=== PATIENT | female | born 1930 | race Asian ===

== ENCOUNTER 2017-04-02 12:31 | Inpatient (IN) | payer OTHER ==
[~2017-04-02] VITALS: Ht 154.9 cm; Wt 63.5 kg
[~2017-04-02 12:31] MED LIST: AMLODIPINE-BEN1 EAC4 ORAL; ASPIR 8181 MG ORAL; HYDROCHLOROTH12.5 MG ORAL; LOVASTATIN20 MG ORAL; METFORMIN HCL850 M1 ORAL; VITAMIN D31000 UNI3 ORAL
[2017-04-02 13:00] VITALS: BP 123/71
[2017-04-02] MEDS ORDERED: Sodium Chloride 500ML 500 ML IV ONE (13:11)
[2017-04-02] MEDS ORDERED: Morphine Sulfate 2mg/ml Inj IVP ONE (13:15)
[2017-04-02 13:39] LABS: HEMATOCRIT 39.4 % (37.0-47.0); MEAN CORPUSCULAR VOLUME 89 FL (80-99); PLATELET COUNT 184 K/UL (150-450); RED CELL DISTRIBUTION WIDTH 12.8 % (11.6-14.8); WHITE BLOOD COUNT 10.3 K/UL (4.8-10.8)
[2017-04-02 13:46] LABS: ANION GAP 9 mmol/L (5-15); BLOOD UREA NITROGEN 13 mg/dL (7-18); CALCIUM 9.3 MG/DL (8.5-10.1); CARBON DIOXIDE 30 MMOL/L (21-32); CHLORIDE 95 MMOL/L (98-107); CREATININE 0.9 MG/DL (0.55-1.30); POTASSIUM 3.2 MMOL/L (3.5-5.1); SODIUM 134 MMOL/L (136-145)
[2017-04-02 14:00] VITALS: BP 130/69
[2017-04-02 14:09] LABS: ALANINE AMINOTRANSFERASE 19 U/L (12-78); ALBUMIN 3.8 G/DL (3.4-5.0); ALBUMIN/GLOBULIN RATIO 0.9 (1.0-2.7); ALKALINE PHOSPHATASE 68 U/L (46-116); ASPARTATE AMINO TRANSFERASE 16 U/L (15-37); BILIRUBIN,TOTAL 0.9 MG/DL (0.2-1.0); CKMB 0.9 NG/ML (0.0-3.6); CREATINE KINASE 117 U/L (26-308)
--- NOTE | 2017-04-02 14:09 | Diagnostic Imaging Report ---
Indication: Chest pain Technique: One view of the chest Comparison: 11/20/2008 Findings: The heart is enlarged. Lungs and pleural spaces are clear. The aorta is tortuous ectatic and calcified. No significant change Impression: Cardiomegaly. No acute process
--- NOTE | 2017-04-02 14:11 | Diagnostic Imaging Report ---
Indication: Reason For Exam: PAIN Technique: 3 views of the right knee Comparison: None Findings: There is degenerative narrowing of lateral joint compartment. There are medial and lateral osteophytes. There is a large suprapatellar effusion. There are patellofemoral osteophytes. The bones are osteoporotic. No acute fractures. Sulcations. There may be some lateral meniscal chondrocalcinosis Impression: Joint effusion, may indicate internal derangement among other possibilities. Correlate with clinical findings Lateral compartment degenerative a space narrowing and tricompartmental degenerative proliferative changes No acute bony trauma Osteoporosis
--- NOTE | 2017-04-02 14:23 | Diagnostic Imaging Report ---
Indications: Syncope, status post fall yesterday Technique: Spiral acquisitions obtained through the brain. Angled axial and coronal 5 x 5 mm slices were reconstructed. Total dose length product 1280.66 mGycm. CTDI vol(s) 70.38 mGy. Dose reduction achieved using automated exposure control Comparison: None. Findings: No acute intracranial hemorrhage or edema. No mass effect or midline shift. There is age-related enlargement of the ventricles and extra axial CSF spaces. There is periventricular deep white matter chronic ischemic changes. There is questionably an old lacunar infarct in the right side of the midbrain. Normal razo-white differentiation. The calvarium is intact. Visualized orbits and sinuses are unremarkable. Impression: Chronic and age-related changes. 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 is accredited by the [employer] and the scans are performed using protocols designed to limit radiation exposure to as low as reasonably achievable to attain images of sufficient resolution adequate for diagnostic evaluation.
[2017-04-02 15:00] VITALS: BP 122/71
--- NOTE | 2017-04-02 15:06 | Emergency Room Report ---
History of Present Illness General Chief Complaint: Syncope Source: Patient Present Illness HPI 86-year-old female presents ED status post syncopal episode. Son at bedside states that patient passed out last night hitting her knee and possibly hitting her head. Patient does not recall what happened. Patient called her son this morning complaining of right knee pain. throbbing, 8 out 10. Unable to bend or extend. Unable to bear weight denies headache. Denies chest pain or shortness of breath. States she takes Xarelto for A. fib. No other aggravating relieving factors. Denies any other associated symptoms Allergies: Coded Allergies: No Known Allergies (Verified , 03/21/11) Patient History Past Medical History: DM, HTN, AFib Past Surgical History: none Pertinent Family History: none Social History: Denies: smoking, alcohol use, drug use Now: No Immunizations: UTD Reviewed Nursing Documentation: PMH: Agreed, PSxH: Agreed Nursing Documentation-PMH Past Medical History: No History, Except For Hx Hypertension: Yes Hx Diabetes: Yes Hx Cancer: No Hx Gastrointestinal Problems: Yes - fatty liver Hx Neurological Problems: Yes - migraines Review of Systems All Other Systems: negative except mentioned in HPI Physical Exam Vital Signs Date Time Temp Pulse Resp B/P (MAP) Pulse Ox O2 Delivery O2 Flow Rate FiO2 04/02/17 12:45 97.6 94 18 132/75 94 Room Air 97.5 Sp02 EP Interpretation: reviewed, normal General Appearance: no apparent distress, alert, GCS 15, non-toxic Head: normocephalic Eyes: bilateral eye normal inspection, bilateral eye PERRL ENT: normal ENT inspection Neck: normal inspection Respiratory: chest non-tender, lungs clear, normal breath sounds, speaking full sentences Cardiovascular #1: regular rate, rhythm, no edema Gastrointestinal: normal bowel sounds, non tender, soft, non-distended, no guarding, no rebound Rectal: deferred Genitourinary: no CVA tenderness Musculoskeletal: decreased range of motion, swelling - R knee Neurologic: alert, oriented x3, responsive, motor strength/tone normal, sensory intact, speech normal Psychiatric: normal inspection Skin: normal inspection Lymphatic: normal inspection Medical Decision Making Diagnostic Impression: Primary Impression: Syncope Qualified Codes: R55 - Syncope and collapse Additional Impressions: Head injury Qualified Codes: S09.90XA - Unspecified injury of head, initial encounter Knee injury Qualified Codes: S89.91XA - Unspecified injury of right lower leg, initial encounter ER Course Hospital Course 86-year-old F presents ED s/p syncopal episode. R knee pain s/p fall Differential diagnoses include: NH/unstable angina, arrythmia, dehydration, CVA/ TIA Clinical course Patient placed on stretcher. on cardiac rehabilitation specialist. After initial history and physical I ordered labs, EKG, chest x-ray, IVFs, CT Brain labs reviewed- no leukocytosis, hemoglobin/hematocrit ok, electrolytes okay, troponins negative, coags ok EKG-afib, no RVR Chest x-ray- no acute process CT brain-unremarkable R knee xray show significant DJD, joint effusion, no fx Case discussed with Dr. Cornell and he agreed to accept the patient to his service for further care and support I. I feel this is a highly complex case requiring extensive working including EKG/Rhythm strip, Xray/CT/US, Blood/urine lab work, repeat exams while in ED, and administration of strong opiates/narcotics for pain control, admission to hospital or close patient follow up. Diagnosis - syncope, head injury, knee injury admitted to telemetry in serious condition Labs Test 04/02/17 13:11 White Blood Count 10.3 K/UL (4.8-10.8) Red Blood Count 4.40 M/UL (4.20-5.40) Hemoglobin 13.0 G/DL (12.0-16.0) Hematocrit 39.4 % (37.0-47.0) Mean Corpuscular Volume 89 FL (80-99) Mean Corpuscular Hemoglobin 29.5 PG (27.0-31.0) Mean Corpuscular Hemoglobin Concent 33.0 G/DL (32.0-36.0) Red Cell Distribution Width 12.8 % (11.6-14.8) Platelet Count 184 K/UL (150-450) Mean Platelet Volume 6.1 FL (6.5-10.1) Neutrophils (%) (Auto) % (45.0-75.0) Lymphocytes (%) (Auto) % (20.0-45.0) Monocytes (%) (Auto) % (1.0-10.0) Eosinophils (%) (Auto) % (0.0-3.0) Basophils (%) (Auto) % (0.0-2.0) Differential Total Cells Counted 100 Neutrophils % (Manual) 84 % (45-75) Lymphocytes % (Manual) 5 % (20-45) Monocytes % (Manual) 11 % (1-10) Eosinophils % (Manual) 0 % (0-3) Basophils % (Manual) 0 % (0-2) Band Neutrophils 0 % (0-8) Platelet Estimate Adequate Platelet Morphology Normal Red Blood Cell Morphology Normal Prothrombin Time 10.5 SEC (9.30-11.50) Prothromb Time International Ratio 1.0 (0.9-1.1) Activated Partial Thromboplast Time 28 SEC (23-33) Sodium Level 134 MMOL/L (136-145) Potassium Level 3.2 MMOL/L (3.5-5.1) Chloride Level 95 MMOL/L (98-107) Carbon Dioxide Level 30 MMOL/L (21-32) Anion Gap 9 mmol/L (5-15) Blood Urea Nitrogen 13 mg/dL (7-18) Creatinine 0.9 MG/DL (0.55-1.30) Estimat Glomerular Filtration Rate mL/min (>60) Glucose Level 188 MG/DL (74-106) Calcium Level 9.3 MG/DL (8.5-10.1) Total Bilirubin 0.9 MG/DL (0.2-1.0) Aspartate Amino Transf (AST/SGOT) 16 U/L (15-37) Alanine Aminotransferase (ALT/SGPT) 19 U/L (12-78) Alkaline Phosphatase 68 U/L (46-116) Total Creatine Kinase 117 U/L (26-308) Creatine Kinase MB 0.9 NG/ML (0.0-3.6) Creatine Kinase MB Relative Index 0.7 Troponin I 0.000 ng/mL (0.000-0.056) Pro-B-Type Natriuretic Peptide 1446 pg/mL (0-125) Total Protein 7.8 G/DL (6.4-8.2) Albumin 3.8 G/DL (3.4-5.0) Globulin 4.0 g/dL Albumin/Globulin Ratio 0.9 (1.0-2.7) EKG Diagnostic Results Rate: normal Rhythm: other - afib ST Segments: no acute changes ASA given to the pt in ED: No Rhythm Strip Diag. Results EP Interpretation: yes Rhythm: no PVC's, no ectopy Chest X-Ray Diagnostic Results Chest X-Ray Diagnostic Results : Chest X-Ray Ordered: Yes # of Views/Limited/Complete: 1 View Indication: Other - syncope EP Interpretation: Yes Interpretation: no consolidation, no effusion, no pneumothorax, no acute cardiopulmonary disease, other - cardiomegaly Impression: Other - cardiomegaly Electronically Signed by: Electronically signed by Constantin Whalen MD Other X-Ray Diagnostic Results Other X-Ray Diagnostic Results : X-Ray ordered: R knee # of Views/Limited Vs Complete: 3 View Indication: Pain EP Interpretation: Yes Interpretation: no dislocation, no soft tissue swelling, no fractures, other - large joint effusion Impression: Other - joint effusion, significant DJD Electronically Signed by: Electronically signed by Constantin Whalen MD CT/MRI/US Diagnostic Results CT/MRI/US Diagnostic Results : Imaging Test Ordered: CT Head Impression no acute process Last Vital Signs Date Time Temp Pulse Resp B/P (MAP) Pulse Ox O2 Delivery O2 Flow Rate FiO2 04/02/17 13:00 98.1 102 23 123/71 97 Room Air 98.1 Status: improved Disposition: ADMITTED INPATIENT Condition: Serious Referrals: [facility],REFERRING (PCP) CONSTANTIN WHALEN M.D. Apr 02, 2017 15:06
[2017-04-02] MEDS ORDERED: Norco 5mg/325mg tab ORAL PRN (15:15)
[2017-04-02] MEDS: NovoLOG Insulin Flexpen SUBQ SCH ×2 (18:20→21:51)
--- NOTE | 2017-04-02 18:52 | Cardiology Progress Note ---
Assessment/Plan Assessment/Plan lives alone not clear to me how son think pt may have had syncoep she does nto remember why she is here ct neg stephen havce echo rothstatic vitals if able to stand message left for son hod off on diuretic hodl benzepril leia tolerant of higer bp for now [id number] Objective Last 24 Hour Vital Signs Date Time Temp Pulse Resp B/P (MAP) Pulse Ox O2 Delivery O2 Flow Rate FiO2 04/02/17 15:40 98.1 101 19 122/71 95 Room Air 04/02/17 15:00 100 20 122/71 96 Room Air 04/02/17 14:00 93 20 130/69 97 Room Air 04/02/17 13:00 98.1 102 23 123/71 97 Room Air 98.1 04/02/17 12:45 97.6 94 18 132/75 94 Room Air 97.5 Laboratory Tests Test 04/02/17 13:11 White Blood Count 10.3 K/UL (4.8-10.8) Red Blood Count 4.40 M/UL (4.20-5.40) Hemoglobin 13.0 G/DL (12.0-16.0) Hematocrit 39.4 % (37.0-47.0) Mean Corpuscular Volume 89 FL (80-99) Mean Corpuscular Hemoglobin 29.5 PG (27.0-31.0) Mean Corpuscular Hemoglobin Concent 33.0 G/DL (32.0-36.0) Red Cell Distribution Width 12.8 % (11.6-14.8) Platelet Count 184 K/UL (150-450) Mean Platelet Volume 6.1 FL (6.5-10.1) L Neutrophils (%) (Auto) % (45.0-75.0) Lymphocytes (%) (Auto) % (20.0-45.0) Monocytes (%) (Auto) % (1.0-10.0) Eosinophils (%) (Auto) % (0.0-3.0) Basophils (%) (Auto) % (0.0-2.0) Differential Total Cells Counted 100 Neutrophils % (Manual) 84 % (45-75) H Lymphocytes % (Manual) 5 % (20-45) L Monocytes % (Manual) 11 % (1-10) H Eosinophils % (Manual) 0 % (0-3) Basophils % (Manual) 0 % (0-2) Band Neutrophils 0 % (0-8) Platelet Estimate Adequate Platelet Morphology Normal Red Blood Cell Morphology Normal Prothrombin Time 10.5 SEC (9.30-11.50) Prothromb Time International Ratio 1.0 (0.9-1.1) Activated Partial Thromboplast Time 28 SEC (23-33) Sodium Level 134 MMOL/L (136-145) L Potassium Level 3.2 MMOL/L (3.5-5.1) L Chloride Level 95 MMOL/L (98-107) L Carbon Dioxide Level 30 MMOL/L (21-32) Anion Gap 9 mmol/L (5-15) Blood Urea Nitrogen 13 mg/dL (7-18) Creatinine 0.9 MG/DL (0.55-1.30) Estimat Glomerular Filtration Rate mL/min (>60) Glucose Level 188 MG/DL (74-106) H Calcium Level 9.3 MG/DL (8.5-10.1) Total Bilirubin 0.9 MG/DL (0.2-1.0) Aspartate Amino Transf (AST/SGOT) 16 U/L (15-37) Alanine Aminotransferase (ALT/SGPT) 19 U/L (12-78) Alkaline Phosphatase 68 U/L (46-116) Total Creatine Kinase 117 U/L (26-308) Creatine Kinase MB 0.9 NG/ML (0.0-3.6) Creatine Kinase MB Relative Index 0.7 Troponin I 0.000 ng/mL (0.000-0.056) Pro-B-Type Natriuretic Peptide 1446 pg/mL (0-125) H Total Protein 7.8 G/DL (6.4-8.2) Albumin 3.8 G/DL (3.4-5.0) Globulin 4.0 g/dL Albumin/Globulin Ratio 0.9 (1.0-2.7) VAHID NICOLE Apr 02, 2017 18:52
[2017-04-02 20:00] VITALS: BP 146/75
--- NOTE | 2017-04-02 20:32 | History and Physical Report ---
DATE OF ADMISSION: 04/02/2017 HISTORY OF PRESENT ILLNESS: The patient is an 86-year-old female, who lives at home alone. She is a poor historian. Apparently, she fell last night and hit her head and injured her right knee. She is unable to walk and was brought into the emergency department by paramedics. She was evaluated and found to have fluid in the right knee joint, but no fracture. A CT brain was negative. Admission was arranged. The patient reports she does not know what happened to her last night. A CT of the brain shows a possible old right midbrain lacunar infarct. PAST MEDICAL HISTORY: This is obtained from [facility] medical records. 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 MEDICATIONS: Reviewed and reconciled. SOCIAL HISTORY: She does not drink or smoke. She is and has multiple family members, but she lives with a student, who she rents a room in her home. She was born in [place]. REVIEW OF SYSTEMS: Otherwise unremarkable. PHYSICAL EXAMINATION: GENERAL: The patient is alert and responsive. She is thin and frail. VITAL SIGNS: Show a heart rate of 102. Other vital signs are normal. HEENT: The head is normocephalic. There is no sign of trauma. NECK: Has no jugular venous distention. CHEST: Clear. CARDIAC: Rhythm is irregular. ABDOMEN: Soft and nontender. The liver and spleen are not enlarged. EXTREMITIES: No clubbing, cyanosis, or edema. The right knee is swollen with a joint effusion. IMPRESSION: 1. Syncope, etiology unclear, possibly due to cerebrovascular disease or arrhythmia or valvular heart disease. 2. Atrial fibrillation. 3. Hypertension. 4. Diabetes. 5. Right knee effusion. 6. Hyperlipidemia. 7. Gout. 8. Carotid artery disease. 9. Hypokalemia. PLAN: The patient will be admitted and evaluated with cardiac echocardiogram and carotid ultrasound. Cardiology and Orthopedics have been called. Mark Cornell M.D. DR: Jose M JOB#: [id number] CC: Cristofer Isaac M.D. [place] [place] Fax#: [phone] Cristofer Brandt M.D.
[2017-04-02] MEDS: Atorvastatin 20mg tab ORAL SCH (21:49)
--- NOTE | 2017-04-02 22:17 | Consultation ---
DATE OF CONSULTATION: 04/02/2017 CARDIOLOGY CONSULTATION REFERRING PHYSICIAN: Mark Cornell M.D. REASON FOR REFERRAL: Syncope. HISTORY OF PRESENT ILLNESS: This is an elderly female who really is somewhat of a poor historian. Information is obtained from review of the patient's chart here and from my review of the [facility] records. I have attempted to contact the patient's son, Mark, but have not been able to reach, a message was left for him to call me back. According to the ER physician's note, the patient's son told that the patient passed out last night, hitting her knee and possibly hitting her head. Does not recall what happened. The patient called her son this morning complaining of the right knee pain, throbbing, 8/10, unable to bend or extend, unable to bear weight. Denies any dizziness. Denies any chest pain or shortness of breath. The patient has been on Xarelto for atrial fibrillation. The patient at this time complains only of the right knee pain and she denies any chest pain, denies any shortness of breath and she is again somewhat of a poor historian. PAST MEDICAL HISTORY: The patient's past medical history according to [facility] records is positive for history of abnormal liver function tests, atrial fibrillation, intermittent paroxysmal in nature, apparently a Zio patch in 2017 indicated 1% atrial fibrillation burden, carotid stenosis, chronic gouty arthritis with tophi, diabetes mellitus, fatty liver, hyperlipidemia, hypertension, hyponatremia, lumbar back pain, osteoarthritis, osteopenia, tubular adenoma, and vitamin D deficiency. MEDICATIONS: Previously have been metoprolol, lovastatin, metformin, Xarelto, Lotensin, hydrochlorothiazide, amlodipine, colchicine and vitamin D. SOCIAL HISTORY: She does not smoke or drink alcoholic beverages. She is , two sons, one daughter, and 5 grandchildren. She lives alone in a house . Her son in [place], his name is Mark with 2 grand kids. Other kids live in [place] and [facility]. She apparently was able to take a bus to doctor's office. REVIEW OF SYSTEMS: CARDIAC: Denies any chest pain or shortness of breath. GENITOURINARY: Denies any discomfort on urination. PULMONARY: She denies any coughing or wheezing. CONSTITUTIONAL: Denies any fevers or chills or night sweats. NEUROLOGICAL: Negative. PHYSICAL EXAMINATION: GENERAL: Shows to be elderly female, in no respiratory distress. She looks quite comfortable. LUNGS: Clear to auscultation and percussion. CARDIAC: Irregularly irregular. Not tachycardic. Not bradycardic. No heaves or thrills noted. ABDOMEN: Soft and nontender. Positive bowel sounds. EXTREMITIES: There is no clubbing, cyanosis, and there is no edema. She does have some pain and swelling of the right knee. NEUROLOGICAL: She is awake, alert, responsive, and she seems to be moving all four extremities, although the right knee is limited secondary to pain. LABORATORY AND DIAGNOSTIC DATA: Her white count is 10.3, hemoglobin 13 and platelet count of 184, polys 85, lymphocytes 5 and monos 11. Sodium is 134, potassium 3.3, chloride 95, bicarbonate 30, BUN of 13, creatinine 0.9 and glucose of 188. Liver function tests appeared to be normal. Troponin first set 0.00. ProBNP is 1400. Albumin of 3.8. Coagulations, INR 1.0 and a PTT of 28. A chest x-ray was performed today shows cardiomegaly, no acute processes. Otherwise, she did have a CT scan of her head in the emergency room, chronic age-related changes, possible or right mid brain could infarction. Negative for acute bleed or mass effects and she had knee x-rays that showed joint effusion, lateral compartment degeneration and space narrowing and tricompartmental degenerative proliferative changes. No acute bony trauma. She apparently does have osteoporosis. Her EKG shows atrial fibrillation with ventricular response, borderline controlled at a rate of 101. Normal QRS axis and some nonspecific T-wave changes. ASSESSMENT AND PLAN: 1. Questionable syncope. 2. Paroxysmal episodes of atrial fibrillation. 3. Diabetes mellitus. 4. Hypertension. 5. There is knee injury. 6. 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 7. Gout. 8. Hyponatremia history. Dr. Cornell, this patient was seen in cardiac consultation. It is difficult for me to understand whether the patient has actually had a syncopal episode. Her son does not live with her, but indicated that the patient may have passed out last night. I am not sure how accurate that information is since the patient is quite demented and really does not remember the reason why they she has been here. I would recommend checking a set of orthostatic vitals. She is on diuretics at home. She does have some contraction alkalosis based on her laboratories. Attempt to perform orthostatic vitals may not be successful as the patient has knee injury and is unable to stand. Her CT did not show any intracranial bleeding and she has not had any pauses on her monitor. She should be observed. An echocardiogram will be ordered and she should be kept on anticoagulation for stroke prevention in light of the fact that she has paroxysmal episodes of atrial fibrillation and I have left a message for the patient's son to find out more information about. In the meantime, a syncopal workup will be performed. Anurag Wong M.D. DR: HALEY JOB#: [id number] CC:
[2017-04-03] VITALS: BP 132/54
[2017-04-03 04:00] VITALS: BP 135/68
[2017-04-03 04:32] LABS: BASOPHILS % (AUTO) 0.4 % (0.0-2.0); EOSINOPHILS % (AUTO) 0.1 % (0.0-3.0); HEMATOCRIT 35.7 % (37.0-47.0); HEMOGLOBIN 12.1 G/DL (12.0-16.0); MEAN CORPUSCULAR VOLUME 89 FL (80-99); MONOCYTES % (AUTO) 14.9 % (1.0-10.0); NEUTROPHILS % (AUTO) 66.6 % (45.0-75.0); PLATELET COUNT 173 K/UL (150-450); RED BLOOD COUNT 4.03 M/UL (4.20-5.40); RED CELL DISTRIBUTION WIDTH 12.6 % (11.6-14.8); WHITE BLOOD COUNT 8.4 K/UL (4.8-10.8)
[2017-04-03 04:52] LABS: CREATINE KINASE 96 U/L (26-308)
[2017-04-03 04:59] LABS: ALANINE AMINOTRANSFERASE 15 U/L (12-78); ALBUMIN 3.2 G/DL (3.4-5.0); ALKALINE PHOSPHATASE 60 U/L (46-116); ANION GAP 8 mmol/L (5-15); ASPARTATE AMINO TRANSFERASE 15 U/L (15-37); BLOOD UREA NITROGEN 17 mg/dL (7-18); CALCIUM 9.1 MG/DL (8.5-10.1); CARBON DIOXIDE 28 MMOL/L (21-32); CHLORIDE 101 MMOL/L (98-107); CHOLESTEROL 129 MG/DL (< 200); CREATININE 0.9 MG/DL (0.55-1.30); HDL CHOLESTEROL 71 MG/DL (40-60); POTASSIUM 4.3 MMOL/L (3.5-5.1); SODIUM 137 MMOL/L (136-145); TRIGLYCERIDES 53 MG/DL (30-150)
[2017-04-03] MEDS: NovoLOG Insulin Flexpen SUBQ SCH ×4 (06:17→20:55)
[2017-04-03 08:00] VITALS: BP 120/69
[2017-04-03] MEDS: Metoprolol Succinate XL 25mg tab ORAL SCH (08:50)
[2017-04-03] MEDS ORDERED: Benazepril 10mg tab ORAL SCH (09:00)
[2017-04-03] MEDS ORDERED: Aspirin Baby 81mg ORAL SCH (09:00)
[2017-04-03 12:00] VITALS: BP 93/54
--- NOTE | 2017-04-03 14:14 | General Progress Note ---
Assessment/Plan Status: not improved Assessment/Plan 1. Syncope, possibly due to cerebrovascular disease, arrhythmia or valvular heart disease. 2. Atrial fibrillation. 3. Hypertension. 4. Diabetes. 5. Right knee effusion. 6. Hyperlipidemia. 7. Gout. 8. Carotid artery disease. 9. Hypokalemia. appreciate cardiology assistance trop neg; BP low called ortho again may need arthrocentesis may need snf if unable to ambulate Subjective Cardiovascular: Denies: chest pain Respiratory: Denies: shortness of breath Allergies: Coded Allergies: No Known Allergies (Verified , 03/21/11) Objective Last 24 Hour Vital Signs Date Time Temp Pulse Resp B/P (MAP) Pulse Ox O2 Delivery O2 Flow Rate FiO2 04/03/17 12:00 99.5 87 20 93/54 96 Room Air 99.5 04/03/17 12:00 84 04/03/17 08:50 110 120/69 04/03/17 08:00 105 04/03/17 08:00 98.1 111 22 120/69 97 Room Air 98.1 04/03/17 06:10 115 04/03/17 06:05 102 04/03/17 06:00 87 04/03/17 04:00 91 04/03/17 04:00 97.9 97 20 135/68 99 Room Air 97.9 04/03/17 00:00 105 04/03/17 00:00 97.9 89 20 132/54 93 Room Air 97.9 04/02/17 20:00 105 04/02/17 20:00 97.9 68 20 146/75 94 Room Air 97.9 04/02/17 17:11 106 04/02/17 15:40 98.1 101 19 122/71 95 Room Air 04/02/17 15:00 100 20 122/71 96 Room Air Intake and Output 04/02/17 04/03/17 19:00 07:00 Intake Total 250 ml Balance 250 ml Intake Oral 250 ml # Voids 1 Laboratory Tests 04/03/17 04:00: White Blood Count 8.4, Red Blood Count 4.03L, Hemoglobin 12.1, Hematocrit 35.7L , Mean Corpuscular Volume 89, Mean Corpuscular Hemoglobin 30.1, Mean Corpuscular Hemoglobin Concent 34.0, Red Cell Distribution Width 12.6, Platelet Count 173, Mean Platelet Volume 6.1L, Neutrophils (%) (Auto) 66.6, Lymphocytes ( %) (Auto) 18.0L, Monocytes (%) (Auto) 14.9H, Eosinophils (%) (Auto) 0.1, Basophils (%) (Auto) 0.4, Sodium Level 137, Potassium Level 4.3, Chloride Level 101, Carbon Dioxide Level 28, Anion Gap 8, Blood Urea Nitrogen 17, Creatinine 0.9, Estimat Glomerular Filtration Rate , Glucose Level 118H, Hemoglobin A1c 6.7H, Calcium Level 9.1, Total Bilirubin 1.0, Aspartate Amino Transf (AST/SGOT) 15, Alanine Aminotransferase (ALT/SGPT) 15, Alkaline Phosphatase 60, Total Creatine Kinase 96, Troponin I 0.000, Pro-B-Type Natriuretic Peptide 2241H, Total Protein 6.4, Albumin 3.2L, Globulin 3.2, Albumin/Globulin Ratio 1.0, Triglycerides Level 53, Cholesterol Level 129, LDL Cholesterol 51, HDL Cholesterol 71H, Cholesterol/HDL Ratio 1.8L Height (Feet): 5 Height (Inches): 1.00 Weight (Pounds): 140 General Appearance: no apparent distress Neck: supple Cardiovascular: normal rate, irregularly irregular Respiratory/Chest: lungs clear Abdomen: non tender Extremities: swelling - R knee effusion THA MEJIA Apr 03, 2017 14:14
--- NOTE | 2017-04-03 15:50 | Consultation ---
Consult Note Consult Note Patient seen evaluated. Ordered CT scan of the Right knee to rule out occult fracture Will start PT toe touch weight bearing Ice to the right knee Hinged knee brace for support No aspiration is recommended. Full consult dictated. Thank you MADHURI BOYKIN Apr 03, 2017 15:50
[2017-04-03 16:00] VITALS: BP 122/67
[2017-04-03] MEDS: Xarelto 15mg tab ORAL SCH (17:23)
--- NOTE | 2017-04-03 18:35 | Cardiology Progress Note ---
Assessment/Plan Assessment/Plan 1. Questionable syncope. 2. Paroxysmal episodes of atrial fibrillation. 3. Diabetes mellitus. 4. Hypertension. 5. There is knee injury. 6. 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 7. Gout. 8. Hyponatremia history orthostatic vital neg today not checked yest tele no sig tachy nor nina echo prelim mod mr normal lv systolic function all torp neg bp was low once recorded not low now ortho fu home soon Subjective ROS Limited/Unobtainable: Yes Subjective poor historian Objective Last 24 Hour Vital Signs Date Time Temp Pulse Resp B/P (MAP) Pulse Ox O2 Delivery O2 Flow Rate FiO2 04/03/17 16:00 97.9 63 18 122/67 63 Room Air 97.9 04/03/17 16:00 82 04/03/17 12:00 99.5 87 20 93/54 96 Room Air 99.5 04/03/17 12:00 84 04/03/17 08:50 110 120/69 04/03/17 08:00 105 04/03/17 08:00 98.1 111 22 120/69 97 Room Air 98.1 04/03/17 06:10 115 04/03/17 06:05 102 04/03/17 06:00 87 04/03/17 04:00 91 04/03/17 04:00 97.9 97 20 135/68 99 Room Air 97.9 04/03/17 00:00 105 04/03/17 00:00 97.9 89 20 132/54 93 Room Air 97.9 04/02/17 20:00 105 04/02/17 20:00 97.9 68 20 146/75 94 Room Air 97.9 General Appearance: alert Neck: supple Cardiovascular: irregularly irregular Respiratory/Chest: lungs clear, normal breath sounds Abdomen: normal bowel sounds, non tender, soft Extremities: no swelling Intake and Output 04/02/17 04/03/17 19:00 07:00 Intake Total 250 ml Balance 250 ml Intake Oral 250 ml # Voids 1 Laboratory Tests Test 04/03/17 04:00 White Blood Count 8.4 K/UL (4.8-10.8) Red Blood Count 4.03 M/UL (4.20-5.40) L Hemoglobin 12.1 G/DL (12.0-16.0) Hematocrit 35.7 % (37.0-47.0) L Mean Corpuscular Volume 89 FL (80-99) Mean Corpuscular Hemoglobin 30.1 PG (27.0-31.0) Mean Corpuscular Hemoglobin Concent 34.0 G/DL (32.0-36.0) Red Cell Distribution Width 12.6 % (11.6-14.8) Platelet Count 173 K/UL (150-450) Mean Platelet Volume 6.1 FL (6.5-10.1) L Neutrophils (%) (Auto) 66.6 % (45.0-75.0) Lymphocytes (%) (Auto) 18.0 % (20.0-45.0) L Monocytes (%) (Auto) 14.9 % (1.0-10.0) H Eosinophils (%) (Auto) 0.1 % (0.0-3.0) Basophils (%) (Auto) 0.4 % (0.0-2.0) Sodium Level 137 MMOL/L (136-145) Potassium Level 4.3 MMOL/L (3.5-5.1) Chloride Level 101 MMOL/L (98-107) Carbon Dioxide Level 28 MMOL/L (21-32) Anion Gap 8 mmol/L (5-15) Blood Urea Nitrogen 17 mg/dL (7-18) Creatinine 0.9 MG/DL (0.55-1.30) Estimat Glomerular Filtration Rate mL/min (>60) Glucose Level 118 MG/DL (74-106) H Hemoglobin A1c 6.7 % (4.3-6.0) H Calcium Level 9.1 MG/DL (8.5-10.1) Total Bilirubin 1.0 MG/DL (0.2-1.0) Aspartate Amino Transf (AST/SGOT) 15 U/L (15-37) Alanine Aminotransferase (ALT/SGPT) 15 U/L (12-78) Alkaline Phosphatase 60 U/L (46-116) Total Creatine Kinase 96 U/L (26-308) Troponin I 0.000 ng/mL (0.000-0.056) Pro-B-Type Natriuretic Peptide 2241 pg/mL (0-125) H Total Protein 6.4 G/DL (6.4-8.2) Albumin 3.2 G/DL (3.4-5.0) L Globulin 3.2 g/dL Albumin/Globulin Ratio 1.0 (1.0-2.7) Triglycerides Level 53 MG/DL (30-150) Cholesterol Level 129 MG/DL (< 200) LDL Cholesterol 51 mg/dL (<100) HDL Cholesterol 71 MG/DL (40-60) H Cholesterol/HDL Ratio 1.8 (3.3-4.4) VAHID NICOLE Apr 03, 2017 18:35
[2017-04-03 20:00] VITALS: BP 122/69
[2017-04-03] MEDS: Atorvastatin 20mg tab ORAL SCH (20:55)
--- NOTE | 2017-04-03 23:45 | Consultation ---
DATE OF CONSULTATION: 04/03/2017 ORTHOPEDIC CONSULTATION CONSULTING PHYSICIAN: Dallas Howard M.D. REQUESTING PHYSICIAN: Mark Cornell M.D. REASON FOR CONSULTATION: Right-sided knee effusion after a fall. BRIEF HISTORY: The patient is a very pleasant 86-year-old female, who states that she had a fall at home. She is unclear whether it was a syncopal fall or mechanical fall. She does not recall all the details and she is not a good historian. She was brought in by paramedics to ER and she was evaluated. She was noted to have right-sided knee effusion. X-ray obtained revealed no fracture although there was advanced arthritis. She has had some effusion about the right knee. She has hard time moving it. She has pain in the right knee. She has had no other significant injuries or trauma. She is admitted for observation and to work up for syncope. PAST MEDICAL HISTORY: Significant for atrial fibrillation, hypertension, diabetes, hyperlipidemia, gout, carotid artery disease, hypokalemia. PAST SURGICAL HISTORY: Not available. MEDICATIONS: Please see chart. ALLERGIES: No known drug allergies. SOCIAL HISTORY: She does not drink or smoke. She is and has multiple family members. She was an independent ambulator. REVIEW OF SYSTEMS: Reviewed and reconciled. There is no other significant finding. PHYSICAL EXAMINATION: Examination of the right knee revealed that she is a pleasant lady, cooperative with examination. Examination of the right knee revealed that there is 2+ effusion. There is some warmth. There is no erythema. There is no exudation. There is no evidence of infection. The patient has 0 to 45 degrees range of motion. Anything beyond that causes pain due to significant effusion. There is some tenderness over the medial and lateral femoral condyles as well as medial and lateral tibial plateau. The knee is diffusely tender to palpation. The neurological examination is intact. There is no crepitation and there is no mechanical blockage. There is no significant crepitation that could be appreciated. X-RAYS: X-ray of the right knee was reviewed. There is advanced arthritis of lateral as well as medial compartment as well as patellofemoral joint. There are some osteophytes that are present. There is no acute fracture that could be appreciated although due to deformity of the joint, an occult tibial plateau fracture cannot be ruled out. IMPRESSION: Right knee effusion, possibly hemarthrosis from an occult fracture, possible tibial plateau fracture or breakoff of an osteophyte or effusion due to previous arthritic condition now with trauma. DISCUSSION: At this time, I discussed with the patient and explained to her my findings. At this time, we recommend that she has ice on the right knee to reduce inflammation. We will go ahead and put a hinged knee brace for comfort and to give her some support. We will go ahead and get a CT scan of right knee to make sure there is no tibial plateau fracture. At this time, I do not recommend any aspiration of hemarthrosis as this would be at risk for infection. We will continue treating her symptomatically. She will follow up with me as an outpatient in the next week or 10 days. All questions were answered. At this time, we will start on physical therapy, toe-touch weightbearing on the right lower extremity. Dallas Howard M.D. DR: Steven JOB#: [id number] CC: ESPINOZA
[2017-04-04] VITALS (8 sets, daily range): BP systolic 100–136; BP diastolic 34–78
[2017-04-04] MEDS: NovoLOG Insulin Flexpen SUBQ SCH ×4 (06:13→22:00)
[2017-04-04] MEDS: Metoprolol Succinate XL 25mg tab ORAL SCH (08:06)
--- NOTE | 2017-04-04 10:54 | Diagnostic Imaging Report ---
Indication: Knee trauma, pain, effusion Technique: CT scan of the knee performed without contrast material. Axial, coronal, and sagittal images were generated. Dose: Total Dose Length Product - DLP [address] Dose Index - CTDIvol(s) 15.26 mGy. Automated exposure control was utilized for dose reduction. Comparison: Knee x-ray 04/02/2017 Findings: The bones are diffusely osteopenic. There is narrowing of the medial joint compartment. Spur formation is noted on all 3 compartments. There is chondrocalcinosis within the knee, greatest laterally. Spurring of the tibial spines is also noted. There is a knee effusion. It is not certain whether there is a lipohemarthrosis. A linear lucency is noted in the patella which does not have a corticated margin and likely represents a nondisplaced fracture rather than a bipartite patella.. Impression: Nondisplaced fracture of the patella. Large knee effusion. Degenerative joint disease. Chondrocalcinosis consistent with gout, CPPD, or hyperparathyroidism. Osteopenia. The CT scanner at [facility] is accredited by the [employer] and the scans are performed using protocols designed to limit radiation exposure to as low as reasonably achievable to attain images of sufficient resolution adequate for diagnostic evaluation.
--- NOTE | 2017-04-04 12:59 | Pulmonology Progress Note ---
Assessment/Plan Assessment/Plan 1. Syncope, possibly due to cerebrovascular disease, arrhythmia or valvular heart disease. 2. Atrial fibrillation. 3. Hypertension. 4. Diabetes. 5. Right knee effusion. 6. Hyperlipidemia. 7. Gout. 8. Carotid artery disease. 9. Hypokalemia. cm consulted for placement home mebs bp control dvt prophylaixs continue PT care while here monitor HR and arrhythmia Subjective Constitutional: Reports: no symptoms HEENT: Repors: no symptoms Respiratory: Reports: no symptoms Cardiovascular: Reports: no symptoms Gastrointestinal/Abdominal: Reports: no symptoms Musculoskeletal: Reports: pain, swelling Allergies: Coded Allergies: No Known Allergies (Verified , 03/21/11) Subjective still iwth pain and swelling of the knee seen by PT and recommends snf and rehab no cp nv or bleeding toleratin po no fever on RA Objective Last 24 Hour Vital Signs Date Time Temp Pulse Resp B/P (MAP) Pulse Ox O2 Delivery O2 Flow Rate FiO2 04/04/17 12:00 97.0 79 18 108/75 94 97.0 04/04/17 12:00 84 04/04/17 09:00 94 94 90 04/04/17 08:06 116 136/78 04/04/17 08:00 118 04/04/17 08:00 97.3 116 18 136/78 95 97.3 04/04/17 04:00 99.0 101 16 124/69 94 99.0 04/04/17 04:00 91 04/04/17 00:00 97 04/04/17 00:00 97.2 97 18 119/77 98 97.2 04/03/17 20:00 97.5 79 19 122/69 97 97.5 04/03/17 20:00 83 04/03/17 16:00 97.9 63 18 122/67 63 Room Air 97.9 04/03/17 16:00 82 Intake and Output 04/03/17 04/04/17 19:00 07:00 Intake Total 580 ml Output Total 500 ml Balance 580 ml -500 ml Intake Oral 580 ml Output Urine Total 500 ml General Appearance: WD/WN HEENT: atraumatic, anicteric Respiratory/Chest: normal breath sounds, no respiratory distress Cardiovascular: regular rhythm, regularly irregular Abdomen: soft, non tender, no organomegaly Extremities: no cyanosis, other - rigth knee edema Neurologic/Psychiatric: abnormal gait, alert, oriented x 3 Lymphatic: no neck adenopathy Current Medications Medications (Trade) Dose Ordered Sig/Francisco Route PRN Reason Start Time Stop Time Status Last Admin Dose Admin Acetaminophen (Tylenol) 650 mg Q4H PRN ORAL Mild Pain (Pain Scale 1-3) 04/02/17 15:15 05/02/17 15:14 04/04/17 08:13 Acetaminophen/ Hydrocodone Bitart ([place] 5/325) 1 tab Q4H PRN ORAL PAIN 4-10 04/02/17 15:15 04/09/17 15:14 04/04/17 00:55 Atorvastatin Calcium (Lipitor) 20 mg BEDTIME ORAL 04/02/17 21:00 05/02/17 20:59 04/03/17 20:55 Colchicine (Colchicine) 0.6 mg DAILY ORAL 04/03/17 09:00 05/03/17 08:59 04/04/17 08:06 Dextrose (Dextrose 50%) STAT PRN IV Hypoglycemia 04/02/17 15:45 05/02/17 15:44 Insulin Aspart (NovoLOG) BEFORE MEALS AND HS SUBQ 04/02/17 17:30 05/02/17 17:29 04/04/17 11:37 Metformin HCl (Glucophage) 850 mg BID ORAL 04/02/17 18:00 05/02/17 17:59 04/04/17 08:06 Metoprolol Succinate (Toprol XL) 25 mg DAILY ORAL 04/03/17 09:00 05/03/17 08:59 04/04/17 08:06 Potassium Chloride (K-Dur) 20 meq Q12HR ORAL 04/02/17 21:00 05/02/17 20:59 04/04/17 08:08 Rivaroxaban (Xarelto) 15 mg QPM ORAL 04/03/17 16:30 05/03/17 16:29 04/03/17 17:23 ANOOP RAPHAEL DO Apr 04, 2017 12:59
--- NOTE | 2017-04-04 15:15 | Cardiology Progress Note ---
Assessment/Plan Assessment/Plan reviewed labs and ECG, she is in atrial fbirllation with good control, asymptomatic, participating in physicial therapy Subjective Subjective the paitent feels OK, only leg pain slihglty anxious no dizziness or palpittions Objective Last 24 Hour Vital Signs Date Time Temp Pulse Resp B/P (MAP) Pulse Ox O2 Delivery O2 Flow Rate FiO2 04/04/17 12:00 97.0 79 18 108/75 94 97.0 04/04/17 12:00 84 04/04/17 09:00 94 94 90 04/04/17 08:06 116 136/78 04/04/17 08:00 118 04/04/17 08:00 97.3 116 18 136/78 95 97.3 04/04/17 04:00 99.0 101 16 124/69 94 99.0 04/04/17 04:00 91 04/04/17 00:00 97 04/04/17 00:00 97.2 97 18 119/77 98 97.2 04/03/17 20:00 97.5 79 19 122/69 97 97.5 04/03/17 20:00 83 04/03/17 16:00 97.9 63 18 122/67 63 Room Air 97.9 04/03/17 16:00 82 General Appearance: alert EENT: normal ENT inspection Neck: non-tender Rhythm: Afib Cardiovascular: tachycardia, diastolic murmur Respiratory/Chest: lungs clear Abdomen: soft Intake and Output 04/03/17 04/04/17 19:00 07:00 Intake Total 580 ml Output Total 500 ml Balance 580 ml -500 ml Intake Oral 580 ml Output Urine Total 500 ml EZE DU Apr 04, 2017 15:15
[2017-04-04] MEDS: Xarelto 15mg tab ORAL SCH (16:21)
[2017-04-04] MEDS: Atorvastatin 20mg tab ORAL SCH (21:59)
[2017-04-05] VITALS (7 sets, daily range): BP systolic 107–148; BP diastolic 50–76
[2017-04-05] MEDS: NovoLOG Insulin Flexpen SUBQ SCH ×4 (07:11→21:00)
[2017-04-05] MEDS: Metoprolol Succinate XL 25mg tab ORAL SCH (08:11)
--- NOTE | 2017-04-05 13:23 | Cardiology Progress Note ---
Assessment/Plan Assessment/Plan will order CBC and CMP and BNp for tomorrow Subjective Subjective the patient is slighlty agitated, compaling on pain in her right leg and being tired Objective Last 24 Hour Vital Signs Date Time Temp Pulse Resp B/P (MAP) Pulse Ox O2 Delivery O2 Flow Rate FiO2 04/05/17 12:00 97.3 85 117/68 97.3 04/05/17 09:00 107/68 111/66 148/50 04/05/17 08:11 85 121/74 04/05/17 08:00 97.0 85 18 121/74 99 97.0 04/05/17 08:00 95 04/05/17 04:00 84 04/05/17 04:00 97.7 77 20 118/68 96 97.7 04/05/17 00:00 105 04/05/17 00:00 98.2 72 18 117/76 96 98.2 04/04/17 20:00 99.2 64 20 111/70 96 99.2 04/04/17 20:00 81 04/04/17 16:00 80 04/04/17 16:00 97.0 95 18 105/54 97 97.0 General Appearance: no apparent distress, mild distress EENT: PERRL/EOMI Neck: no JVD Rhythm: Afib Cardiovascular: tachycardia Respiratory/Chest: chest wall non-tender, normal breath sounds Abdomen: non tender Intake and Output 04/04/17 04/05/17 19:00 07:00 Intake Total 360 ml 200 ml Output Total 350 ml Balance 10 ml 200 ml Intake Oral 360 ml 200 ml Output Urine Total 350 ml # Voids 1 # Bowel Movements 1 EZE DU Apr 05, 2017 13:23
--- NOTE | 2017-04-05 14:38 | Cardiology Report ---
APPROVED REPORT EXAM: Two-dimensional and M-mode echocardiogram with Doppler and color Doppler. INDICATION Syncope Normal left ventricular chamber size, systolic function and wall motion. Left ventricular ejection fraction estimated to be 60-65 %. Mild left ventricular hypertrophy. No evidence of pericardial effusion. Moderate bi-atrial enlargement. Right ventricular chamber size is within normal limits. Focal aortic valve sclerosis with borderline cusp excursion. Thickened mitral valve leaflets with normal excursion. Mitral annulus and aortic root calcification. Pulmonic valve not well visualized. Normal tricuspid valve structure. IVC at normal size with physiologic collapse. A color flow and spectral Doppler study was performed and revealed: Trace aortic regurgitation. Peak aortic valve gradient of 13 mm Hg and a mean of 7 mmHg. Aortic valve area 1.9 cm2 calculated by continuity equation. Moderate mitral regurgitation. Can not determine left ventricular diastolic function by mitral diastolic velocities due to atrial fibrillation. Moderate tricuspid regurgitation. Tricuspid systolic velocities suggests peak right ventricular systolic pressure of 43 mmHg, consistent with mild to moderate pulmonary hypertension.
--- NOTE | 2017-04-05 15:07 | Cardiology Report ---
APPROVED REPORT EKG Measurement Heart [id number] Atrial fibrillation with rapid ventricular response Nonspecific ST and T wave abnormality Abnormal ECG
--- NOTE | 2017-04-05 15:28 | Cardiology Report ---
APPROVED REPORT EKG Measurement Heart [id number] Atrial fibrillation with rapid ventricular response Nonspecific ST and T wave abnormality Abnormal ECG
[2017-04-05] MEDS: Xarelto 15mg tab ORAL SCH (17:18)
--- NOTE | 2017-04-05 19:59 | Pulmonology Progress Note ---
Assessment/Plan Assessment/Plan 1. Syncope, possibly due to cerebrovascular disease, arrhythmia or valvular heart disease. 2. Atrial fibrillation. 3. Hypertension. 4. Diabetes. 5. Right knee effusion. 6. Hyperlipidemia. 7. Gout. 8. Carotid artery disease. 9. Hypokalemia. 10 nondisplaced fracture of the patella FU with ortho recommendations brace cm consulted for placement home mebs bp control dvt prophylaixs pain control monitor HR and arrhythmia labs stable Subjective Constitutional: Reports: no symptoms HEENT: Repors: no symptoms Respiratory: Reports: no symptoms Cardiovascular: Reports: no symptoms Gastrointestinal/Abdominal: Reports: no symptoms Genitourinary: Reports: no symptoms Allergies: Coded Allergies: No Known Allergies (Verified , 03/21/11) Subjective still with pain and swelling of the knee CT with nondisplaced fracture of the patella family requsting rehab as well seen by PT and recommends snf and rehab, cm notified yesterday no cp nv or bleeding tolerating po no fever on RA Objective Last 24 Hour Vital Signs Date Time Temp Pulse Resp B/P (MAP) Pulse Ox O2 Delivery O2 Flow Rate FiO2 04/05/17 16:00 97.7 79 18 115/67 97 97.7 115/67 04/05/17 16:00 78 04/05/17 12:00 85 04/05/17 12:00 97.3 85 117/68 97.3 04/05/17 09:00 107/68 111/66 148/50 04/05/17 08:11 85 121/74 04/05/17 08:00 97.0 85 18 121/74 99 97.0 04/05/17 08:00 95 04/05/17 04:00 84 04/05/17 04:00 97.7 77 20 118/68 96 97.7 04/05/17 00:00 105 04/05/17 00:00 98.2 72 18 117/76 96 98.2 04/04/17 20:00 99.2 64 20 111/70 96 99.2 04/04/17 20:00 81 Intake and Output 04/04/17 04/05/17 18:59 06:59 Intake Total 360 ml 200 ml Output Total 350 ml Balance 10 ml 200 ml Intake Oral 360 ml 200 ml Output Urine Total 350 ml # Voids 1 General Appearance: WD/WN HEENT: atraumatic Respiratory/Chest: lungs clear, normal breath sounds Cardiovascular: normal peripheral pulses, normal rate Abdomen: soft, non tender, no organomegaly Genitourinary: normal external genitalia Extremities: no cyanosis Neurologic/Psychiatric: abnormal gait, oriented x 3 Current Medications Medications (Trade) Dose Ordered Sig/Francisco Route PRN Reason Start Time Stop Time Status Last Admin Dose Admin Acetaminophen (Tylenol) 650 mg Q4H PRN ORAL Mild Pain (Pain Scale 1-3) 04/02/17 15:15 05/02/17 15:14 04/05/17 00:59 Acetaminophen/ Hydrocodone Bitart ([place] 5/325) 1 tab Q4H PRN ORAL PAIN 4-10 04/02/17 15:15 04/09/17 15:14 04/04/17 00:55 Atorvastatin Calcium (Lipitor) 20 mg BEDTIME ORAL 04/02/17 21:00 05/02/17 20:59 04/04/17 21:59 Colchicine (Colchicine) 0.6 mg DAILY ORAL 04/03/17 09:00 05/03/17 08:59 04/05/17 08:10 Dextrose (Dextrose 50%) STAT PRN IV Hypoglycemia 04/02/17 15:45 05/02/17 15:44 Insulin Aspart (NovoLOG) BEFORE MEALS AND HS SUBQ 04/02/17 17:30 05/02/17 17:29 04/05/17 07:11 Metformin HCl (Glucophage) 850 mg BID ORAL 04/02/17 18:00 05/02/17 17:59 04/05/17 17:18 Metoprolol Succinate (Toprol XL) 25 mg DAILY ORAL 04/03/17 09:00 05/03/17 08:59 04/05/17 08:11 Potassium Chloride (K-Dur) 20 meq Q12HR ORAL 04/02/17 21:00 05/02/17 20:59 04/05/17 08:10 Rivaroxaban (Xarelto) 15 mg QPM ORAL 04/03/17 16:30 05/03/17 16:29 04/05/17 17:18 ANOOP RAPHAEL DO Apr 05, 2017 19:59
--- NOTE | 2017-04-05 20:26 | Consultation ---
Consult Note Consult Note Ortho f/u after review of CT non displaced patellar fracture no sx needed. rec knee immobilizer. TTWB pt will need to f/u with her ortho at [facility] as outpt DANGELO CARNEY Apr 05, 2017 20:26
[2017-04-05] MEDS: Atorvastatin 20mg tab ORAL SCH (21:42)
[2017-04-06] VITALS: BP 126/71
[2017-04-06 04:00] VITALS: BP 127/57
[2017-04-06] MEDS: NovoLOG Insulin Flexpen SUBQ SCH ×2 (06:01→11:30)
[2017-04-06 08:00] VITALS: BP 112/58
[2017-04-06 08:36] LABS: BASOPHILS % (AUTO) 0.6 % (0.0-2.0); EOSINOPHILS % (AUTO) 2.5 % (0.0-3.0); HEMATOCRIT 40.8 % (37.0-47.0); HEMOGLOBIN 13.4 G/DL (12.0-16.0); LYMPHOCYTES % (AUTO) 33.1 % (20.0-45.0); MEAN CORPUSCULAR VOLUME 90 FL (80-99); MONOCYTES % (AUTO) 9.4 % (1.0-10.0); NEUTROPHILS % (AUTO) 54.4 % (45.0-75.0); PLATELET COUNT 224 K/UL (150-450); RED BLOOD COUNT 4.52 M/UL (4.20-5.40); RED CELL DISTRIBUTION WIDTH 12.8 % (11.6-14.8)
[2017-04-06] MEDS: Metoprolol Succinate XL 25mg tab ORAL SCH (08:56)
[2017-04-06 09:00] LABS: ALANINE AMINOTRANSFERASE 41 U/L (12-78); ALBUMIN/GLOBULIN RATIO 0.7 (1.0-2.7); ALKALINE PHOSPHATASE 113 U/L (46-116); ANION GAP 10 mmol/L (5-15); ASPARTATE AMINO TRANSFERASE 38 U/L (15-37); BILIRUBIN,TOTAL 0.8 MG/DL (0.2-1.0); BLOOD UREA NITROGEN 13 mg/dL (7-18); CALCIUM 9.7 MG/DL (8.5-10.1); CARBON DIOXIDE 27 MMOL/L (21-32); CHLORIDE 101 MMOL/L (98-107); CREATININE 0.8 MG/DL (0.55-1.30); POTASSIUM 4.4 MMOL/L (3.5-5.1); SODIUM 138 MMOL/L (136-145)
[2017-04-06 12:00] VITALS: BP 114/70
--- NOTE | 2017-04-06 15:37 | Wound Care Consultation ---
Wound Assessment Wound Assessment : Wound Number: 1 Wound Present on Admission: Yes New Wound: No Status Change of Wound: No Wound Location Body Site Modif: left, anterior Wound Location Body Site: toe - 1st,big toe Wound Type: scab Raphael Test: Does not Raphael Wound Thickness: Partial Thickness Wound Length: 0.5 Wound Width: 0.5 Percent of Wound [place]/Red: 50 - dry scab Percent of Wound Black/Brown: 50 - dry scab Wound Drainage Amount: None Wound Drainage Odor: None/Absent Tissue Surrounding Wound: Intact Wound General Appearance: Open to air, Clean/Dry Wound Comment #1 left anterior big toe scab- Recommendation. -keep area clean and dry. -Offload area. -assess and notify MD for any changes to skin. -turn and reposition. -local wound care - keep site clean and dry. per patient site is getting better its dry now. JESÚS FERNANDEZ Apr 06, 2017 15:37
--- NOTE | 2017-04-07 13:15 | Discharge Summary ---
Discharge Summary Hospital Course Date of Admission Apr 02, 2017 at 14:43 Date of Discharge Apr 06, 2017 at 18:00 Admitting Diagnosis SYNCOPE HPI Evelia Guadarrama is a 86 year old female who was admitted on Apr 02, 2017 at 14:43 for Syncope Hospital Course dc summary #[id number] Discharge Condition Upon Discharge: stable Discharge Disposition Patient was discharged to SNF (03) Discharge Diagnoses: Discharge Instructions Discharge Instructions Special Instructions I have been assigned to complete a D/C Summary on this account. I was not involved in the patient management Ricky Munson),Felisa JAIME Apr 07, 2017 13:15
--- NOTE | 2017-04-08 03:00 | Discharge Summary 2 SIG ---
DATE OF ADMISSION: 04/02/2017 DATE OF DISCHARGE: 04/06/2017 REASON FOR ADMISSION: 86 years old female with a history of hypertension, diabetes, and atrial fibrillation, presented to the emergency department after a syncopal episode. The patient apparently passed out last night hitting her knee and possibly head. The patient could not recall what happened, but she called her son complaining of the right knee pain, 8/10, described as throbbing, unable to bend or extend the leg, and unable to bear weight. She denied headache. Denied chest pain, shortness of breath. The patient was taking anticoagulation/ Xarelto for atrial fibrillation. Workup in the emergency room revealed stable vital signs. 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 Chest x-ray revealed no acute cardiopulmonary pathology, but revealed cardiomegaly. Right knee x-ray showed significant degenerative joint disease with effusion, but no fracture. No leukocytosis, stable hemoglobin and hematocrit, potassium -3.2, otherwise stable electrolytes, renal parameters. Troponin negative. EKG revealed atrial fibrillation, but no evidence of rapid ventricular response. The patient admitted with syncopal episode, right knee effusion, hypertension, diabetes, atrial fibrillation, hyperlipidemia , gout, carotid artery disease, and hypokalemia. HOSPITAL COURSE: The patient admitted. Cardiology and Orthopedic surgeon consults were requested. Echocardiogram revealed preserved ejection fraction of 60% to 65%, right ventricular systolic pressure of 43 consistent with moderate pulmonary hypertension as well as the evidence of moderate mitral and tricuspid regurgitation. Director Furniture closely followed, no evidence of arrhythmia while on the monitoring analyst. All troponin were negative. No orthostatic vital sign changes. Blood pressure stable. One liter of fluids was given in the emergency department. Anticoagulation for atrial fibrillation was continued. Carotid duplex revealed mild 30% stenosis bilaterally. Blood pressure was managed with beta-ezra. Statin was continued. Blood sugar was managed with metformin and sliding scale of insulin as needed. Initial hypokalemia was corrected and potassium was stable. The patient was clinically improving, however, had pain in the right knee. Orthopedic surgeon seen and evaluated the patient. He recommended ice to the right knee, pain management, knee brace, and did not recommend any aspiration at this time. CT of the knee revealed nondisplaced right patella fracture. Per surgeon, no surgery needed. The patient started with a knee immobilizer. The patient started working with physical therapists, weightbearing status toe touch, as tolerated. Follow up as outpatient with the orthopedic surgeon. Cause of syncopal episode unclear, but cardiac causes and CVA were ruled out. The patient required short term placement for rehabilitation. Placement was found at [facility]. The patient was stable [facility] to [facility]. FINAL DIAGNOSES: 1. Syncopal episode, etiology unclear 2. Nondisplaced right patella fracture, secondary to syncopal fall. 3. Paroxysmal atrial fibrillation. 4. Right knee effusion. 5. Hypertension. 6. Diabetes. 7. Hyperlipidemia. 8. Gout. 9. Carotid artery disease. 10. Hypokalemia, corrected. DISCHARGE DATA: The [facility] was [facility] to [facility]. FOLLOWUP: Follow up with medical doctor at the facility. Follow up with orthopedic surgeon as outpatient as advised. DISCHARGE MEDICATIONS: List of mediations was sent to the accepting facility. Mark Cornell M.D. I have been assigned to dictate discharge summary on this account and I was not involved in the patient's management. Felisa Nielsenmount sinai health systemLaci N.P. DR: YOVANI JOB#: [id number] CC: ESPINOZA
--- NOTE | 2017-04-08 13:05 | Diagnostic Imaging Report ---
APPROVED REPORT CPT Code: 32109 Vascular Symptoms Syncope Doppler Spectral Velocity Analysis RightLeft RIGHT SIDE: CCA/BULB- Imaging reveals irregular, mild (30%) plaque in the carotid bulb and external carotid arteries. VERTEBRAL - The vertebral artery is patent, without evidence of stenosis or steal. LEFT SIDE: ICA/BULB - Imaging reveals irregular, mild (30%) plaque in the carotid bulb and the internal carotid artery. The Doppler signal indicates the degree of stenosis is mild (30%) in the carotid bulb and the internal carotid artery. ECA - The external carotid artery is patent. VERTEBRAL - The vertebral artery is patent, without evidence of stenosis or steal.
== END 2017-04-06 18:00 | DRG 312 ==
LOC: EMR 13:35 → 2E 14:01 → OBSVTOIN 14:43 → EDBEDREQ 15:03 → 2E 21:20
DX: R55 Syncope and collapse (principal); E11.8 Type 2 diabetes mellitus with unspecified complications; D68.9 Coagulation defect, unspecified; I27.20 Pulmonary hypertension, unspecified; I36.1 Nonrheumatic tricuspid (valve) insufficiency; S82.091A Other fracture of right patella, initial encounter for closed fracture; I48.0 Paroxysmal atrial fibrillation; I10 Essential (primary) hypertension; E78.5 Hyperlipidemia, unspecified; M10.9 Gout, unspecified; E87.6 Hypokalemia; Z86.73 Personal history of transient ischemic attack (TIA), and cerebral infarction without residual deficits; I34.0 Nonrheumatic mitral (valve) insufficiency; W19.XXXA Unspecified fall, initial encounter; M25.461 Effusion, right knee; Y92.009 Unspecified place in unspecified non-institutional (private) residence as the place of occurrence of the external cause; Z79.01 Long term (current) use of anticoagulants; I65.29 Occlusion and stenosis of unspecified carotid artery
CPT/HCPCS: 36415; 70450; 71045; 80053; 80061; 82550; 82553; 82962; 83036; 83880; 84484; 85007; 85025; 85610; 85730; 86850; 86900; 86901; 93005; 93306; 93880; 99285; J1815; J8499

== ENCOUNTER 2017-09-14 10:06 | Inpatient (IN) | payer OTHER ==
[~2017-09-14] VITALS: Ht 152.4 cm; Wt 47.3 kg
[~2017-09-14 10:06] MED LIST changes: +METFORMIN HCL500 M1 ORAL; +METOPROLOL TART25 MG ORAL
[2017-09-14] MEDS ORDERED: Sodium Chloride 500ML 500 ML IV ONE (10:12)
[2017-09-14 10:36] VITALS: BP 168/88
[2017-09-14 10:44] LABS: HEMATOCRIT 40.6 % (37.0-47.0); HEMOGLOBIN 13.2 G/DL (12.0-16.0); MEAN CORPUSCULAR VOLUME 91 FL (80-99); PLATELET COUNT 159 K/UL (150-450); RED BLOOD COUNT 4.46 M/UL (4.20-5.40); WHITE BLOOD COUNT 12.2 K/UL (4.8-10.8)
[2017-09-14 10:58] LABS: ANION GAP 16 mmol/L (5-15); BLOOD UREA NITROGEN 11 mg/dL (7-18); CARBON DIOXIDE 23 MMOL/L (21-32); CHLORIDE 97 MMOL/L (98-107); CREATININE 1.1 MG/DL (0.55-1.30); POTASSIUM 3.2 MMOL/L (3.5-5.1); SODIUM 136 MMOL/L (136-145)
--- NOTE | 2017-09-14 11:12 | Diagnostic Imaging Report ---
Indications: Dizziness and weakness Technique: Spiral acquisitions obtained through the brain. Angled axial and coronal 5 x 5 mm slices were reconstructed. Total dose length product 1397.09 mGycm. CTDI vol(s) 70.38 mGy. Dose reduction achieved using automated exposure control Comparison: 04/02/2017 Findings: Again demonstrated is age-related enlargement of the ventricles and extra axial CSF spaces. Again demonstrated is periventricular deep white matter low-attenuation, consistent with chronic ischemic change. No acute intracranial hemorrhage nor edema, mass effect nor midline shift. Previously questioned right midbrain low-attenuation is less evident currently. The calvarium is intact. The sinuses are clear. The orbits are unremarkable. The mastoids are clear. There is no significant interim change Impression: Chronic and age-related changes Negative for acute intracranial bleed or mass effect The CT scanner at [facility] is accredited by the [employer] and the scans are performed using protocols designed to limit radiation exposure to as low as reasonably achievable to attain images of sufficient resolution adequate for diagnostic evaluation.
[2017-09-14 11:14] LABS: ALANINE AMINOTRANSFERASE 18 U/L (12-78); ALBUMIN 3.8 G/DL (3.4-5.0); ALKALINE PHOSPHATASE 65 U/L (46-116); ASPARTATE AMINO TRANSFERASE 20 U/L (15-37); BILIRUBIN,TOTAL 2.8 MG/DL (0.2-1.0); CKMB 0.6 NG/ML (0.0-3.6); CREATINE KINASE 63 U/L (26-308)
[2017-09-14 11:28] LABS: BILIRUBIN,DIRECT 0.8 MG/DL (0.0-0.3)
[2017-09-14] MEDS ORDERED: Labetalol 5mg/ml 20ml vial IV ONE (11:30)
[2017-09-14 12:00] LABS: APPEARANCE,URINE CLEAR; BILIRUBIN, URINE NEGATIVE (NEGATIVE); GLUCOSE, URINE (UA) NEGATIVE (NEGATIVE); KETONES,URINE 4+ (NEGATIVE); LEUKOCYTE ESTERASE ,URINE NEGATIVE (NEGATIVE); NITRITE,URINE NEGATIVE (NEGATIVE); PH,URINE 6 (4.5-8.0); PROTEIN,URINE 3+ (NEGATIVE); UROBILINOGEN,URINE 1 MG/DL (0.0-1.0)
[2017-09-14 12:01] LABS: COLOR,URINE YELLOW
[2017-09-14 12:15] VITALS: BP 138/89
--- NOTE | 2017-09-14 12:46 | Emergency Room Report ---
History of Present Illness General Chief Complaint: Generalized Weakness Source: Patient, EMS, Caregiver Present Illness HPI Patient presents by paramedics for reports of weakness I was able to speak to the patient's landlord who lives below the patient reports that on Thursday the patient appeared weaker than usual however was still somewhat ambulatory Yesterday he saw the patient and she appeared to be worse This morning the patient was not able to ambulate extremely weak Here the patient denies any headache denies any chest pain She is extremely hard of hearing There was no obvious report of fall or syncope Patient was here at the hospital about 4 months ago with a syncopal episode has history of atrial fibrillation and previously on xarelto Allergies: Coded Allergies: No Known Allergies (Verified , 03/21/11) Patient History Limited by: medical condition Past Medical History: see triage record Pertinent Family History: none Last Menstrual Period: NA Reviewed Nursing Documentation: PMH: Agreed; PSxH: Agreed Nursing Documentation-PMH Past Medical History: No History, Except For Hx Hypertension: Yes Hx Diabetes: Yes Hx Cancer: No Hx Gastrointestinal Problems: Yes - fatty liver Hx Neurological Problems: Yes - migraines Review of Systems All Other Systems: limited - Other than the ones mentioned in the history of present illness all others are reviewed however they do stay limited due to the patient's mental status Physical Exam Vital Signs Date Time Temp Pulse Resp B/P (MAP) Pulse Ox O2 Delivery O2 Flow Rate FiO2 09/14/17 09:55 98.1 98 20 168/88 97 Room Air 98.1 Sp02 EP Interpretation: reviewed, normal General Appearance: no apparent distress Head: normocephalic, atraumatic Eyes: bilateral eye PERRL, bilateral eye EOMI ENT: dry mucus membranes Neck: full range of motion, supple Respiratory: lungs clear, normal breath sounds Cardiovascular #1: tachycardia, irregularly irregular Gastrointestinal: non tender, soft, no mass Musculoskeletal: other - No obvious focal deficit Neurologic: alert, responsive Skin: normal color, no rash Lymphatic: no adenopathy Medical Decision Making Diagnostic Impression: Primary Impression: Atrial fibrillation with RVR Additional Impression: Episode of generalized weakness ER Course Patient is a fairly complex patient with multiple differential to consideration including but not limited to infectious , metabolic , neurological ,cardiac cardiopulmonary and vascular emergencies CT head does not show any obvious acute pathology Patient did require acute intervention as she remained somewhat tachycardic with the atrial fibrillation And at this time requires further inpatient care Labs Test 09/14/17 10:23 09/14/17 11:31 White Blood Count 12.2 K/UL (4.8-10.8) Red Blood Count 4.46 M/UL (4.20-5.40) Hemoglobin 13.2 G/DL (12.0-16.0) Hematocrit 40.6 % (37.0-47.0) Mean Corpuscular Volume 91 FL (80-99) Mean Corpuscular Hemoglobin 29.6 PG (27.0-31.0) Mean Corpuscular Hemoglobin Concent 32.4 G/DL (32.0-36.0) Red Cell Distribution Width 15.0 % (11.6-14.8) Platelet Count 159 K/UL (150-450) Mean Platelet Volume 8.2 FL (6.5-10.1) Neutrophils (%) (Auto) % (45.0-75.0) Lymphocytes (%) (Auto) % (20.0-45.0) Monocytes (%) (Auto) % (1.0-10.0) Eosinophils (%) (Auto) % (0.0-3.0) Basophils (%) (Auto) % (0.0-2.0) Differential Total Cells Counted 100 Neutrophils % (Manual) 88 % (45-75) Lymphocytes % (Manual) 7 % (20-45) Monocytes % (Manual) 5 % (1-10) Eosinophils % (Manual) 0 % (0-3) Basophils % (Manual) 0 % (0-2) Band Neutrophils 0 % (0-8) Platelet Estimate Adequate Platelet Morphology Normal Red Blood Cell Morphology Normal Sodium Level 136 MMOL/L (136-145) Potassium Level 3.2 MMOL/L (3.5-5.1) Chloride Level 97 MMOL/L (98-107) Carbon Dioxide Level 23 MMOL/L (21-32) Anion Gap 16 mmol/L (5-15) Blood Urea Nitrogen 11 mg/dL (7-18) Creatinine 1.1 MG/DL (0.55-1.30) Estimat Glomerular Filtration Rate mL/min (>60) Glucose Level 146 MG/DL (74-106) Calcium Level 9.0 MG/DL (8.5-10.1) Total Bilirubin 2.8 MG/DL (0.2-1.0) Direct Bilirubin 0.8 MG/DL (0.0-0.3) Aspartate Amino Transf (AST/SGOT) 20 U/L (15-37) Alanine Aminotransferase (ALT/SGPT) 18 U/L (12-78) Alkaline Phosphatase 65 U/L (46-116) Total Creatine Kinase 63 U/L (26-308) Creatine Kinase MB 0.6 NG/ML (0.0-3.6) Creatine Kinase MB Relative Index 0.9 Troponin I 0.000 ng/mL (0.000-0.056) Pro-B-Type Natriuretic Peptide 5777 pg/mL (0-125) Total Protein 7.6 G/DL (6.4-8.2) Albumin 3.8 G/DL (3.4-5.0) Globulin 3.8 g/dL Albumin/Globulin Ratio 1.0 (1.0-2.7) Lipase 86 U/L (73-393) Urine Color Yellow Urine Appearance Clear Urine pH 6 (4.5-8.0) Urine Specific [place] 1.020 (1.005-1.035) Urine Protein 3+ (NEGATIVE) Urine Glucose (UA) Negative (NEGATIVE) Urine Ketones 4+ (NEGATIVE) Urine Occult Blood 1+ (NEGATIVE) Urine Nitrite Negative (NEGATIVE) Urine Bilirubin Negative (NEGATIVE) Urine Urobilinogen 1 MG/DL (0.0-1.0) Urine Leukocyte Esterase Negative (NEGATIVE) Urine RBC 0-2 /HPF (0 - 2) Urine WBC 0-2 /HPF (0 - 2) Urine Squamous Epithelial Cells Occasional /LPF Urine Bacteria Few /HPF (NONE) Urine Mucus Few /LPF (NONE/OCC) EKG Diagnostic Results Rate: tachycardiac Rhythm: other - A. fib ST Segments: other - Nonspecific ST and T-wave changes Rhythm Strip Diag. Results EP Interpretation: yes Rate: 110 Rhythm: no PVC's, no ectopy, other - Irregularly irregular Chest X-Ray Diagnostic Results Chest X-Ray Diagnostic Results : Chest X-Ray Ordered: Yes # of Views/Limited/Complete: 1 View Indication: Chest Pain EP Interpretation: Yes Interpretation: no consolidation, no effusion, no pneumothorax, no acute cardiopulmonary disease Impression: No acute disease - Cardiomegaly Electronically Signed by: Zeina Winston, DO CT/MRI/US Diagnostic Results CT/MRI/US Diagnostic Results : Impression CT head no acute disease Last Vital Signs Date Time Temp Pulse Resp B/P (MAP) Pulse Ox O2 Delivery O2 Flow Rate FiO2 09/14/17 11:55 136 133/125 09/14/17 10:36 98.1 20 97 Room Air 98.1 Status: improved Disposition: ADMITTED INPATIENT Condition: Serious Referrals: ANN,REFERRING (PCP) Zeina Winston DO Sep 14, 2017 12:46
--- NOTE | 2017-09-14 15:28 | Diagnostic Imaging Report ---
Indication: Chest pain Technique: One view of the chest Comparison: 04/02/2017 Findings: The heart is enlarged. The lungs and pleural spaces are clear. Impression: Cardiomegaly. No acute process
[2017-09-14 16:00] VITALS: BP 149/100
[2017-09-14] MEDS ORDERED: Xarelto 10mg tab ORAL SCH (16:30)
[2017-09-14 20:00] VITALS: BP 141/73
[2017-09-14] MEDS ORDERED: Metoprolol 25mg tab ORAL SCH (21:00)
[2017-09-14] MEDS ORDERED: Metoprolol 25mg tab ORAL ONE (23:00)
--- NOTE | 2017-09-14 23:45 | Consultation ---
DATE OF CONSULTATION: 09/14/2017 CARDIOLOGY CONSULTATION CONSULTING PHYSICIAN: Cristofer Brandt M.D. REQUESTING PHYSICIAN: Mark Cornell M.D. REASON FOR CONSULTATION: Atrial fibrillation with rapid ventricular response. HISTORY OF PRESENT ILLNESS: This is a [place] female, age 86 who apparently lives at home alone. She was noted by her landlord to be progressively weaker over the past few days to the point where she was not able to ambulate. Today, she was referred to the emergency room. She has a poor historian, is very hard of hearing and may also have some language barrier, so more details are not obtainable. The patient was hospitalized here about 4 months ago following a syncopal episode and at that time was started on Xarelto for antiarrhythmics for atrial fibrillation. She has not had any apparent complaints of chest pain. It is unclear whether she is short of breath or just weak. PAST MEDICAL HISTORY: Hypertension, type 2 diabetes mellitus, fatty liver disease, and history of migraine. MEDICATIONS: Her medications prior to admission are not known, although previously prescribed medications were reviewed and reconciled. ALLERGIES: None. FAMILY HISTORY: Not known. SOCIAL HISTORY: Negative for smoking, alcohol, or substance abuse. REVIEW OF SYSTEMS: Unobtainable. PHYSICAL EXAMINATION: VITAL SIGNS: Blood pressure 168/88, heart rate 90 to 112, respiratory rate 20 and she is afebrile. HEENT: Temporal wasting. Pale conjunctivae. Oropharynx clear. Mucous membranes dry. NECK: Supple. Jugular venous pressure normal. LUNGS: Good breath sounds. CARDIAC: Irregularly irregular. Normal S1 and S2 with no murmur, rub or gallop. ABDOMEN: Soft and nontender. EXTREMITIES: Good pulses. No edema. NEUROLOGIC: Reveals symmetric strength. Mild cognitive impairment. LABORATORY AND DIAGNOSTIC DATA: White count 12 and hemoglobin 13. Sodium 136, potassium 3.2, bicarbonate 23, BUN 11 and creatinine 1.1. Albumin 3.8. Pro-natriuretic peptide 5777. Troponin zero. Urinalysis with few bacteria and no white cells. EKG, atrial fibrillation with rapid ventricular response, nonspecific ST-T wave changes. Chest x-ray, no acute process. Cardiomegaly. Head CT, no acute process. IMPRESSION: 1. Atrial fibrillation with rapid ventricular response. 2. Hypokalemia. 3. Metabolic encephalopathy. 4. Acute on chronic diastolic congestive heart failure. 5. History of diabetes type 2. 6. History of hypertension. RECOMMEND: 1. Additional therapy for rate control. 2. Resume anticoagulation for cardioembolic prophylaxis. 3. Replace potassium. 4. Check magnesium. Cristofer Brandt M.D. DR: AVRIL JOB#: [id number] CC:
[2017-09-15] VITALS: BP 139/95
[2017-09-15 04:00] VITALS: BP 139/96
[2017-09-15 07:16] LABS: BASOPHILS % (AUTO) 0.4 % (0.0-2.0); EOSINOPHILS % (AUTO) 0.1 % (0.0-3.0); HEMATOCRIT 36.5 % (37.0-47.0); HEMOGLOBIN 12.1 G/DL (12.0-16.0); LYMPHOCYTES % (AUTO) 8.1 % (20.0-45.0); MEAN CORPUSCULAR VOLUME 90 FL (80-99); MONOCYTES % (AUTO) 9.8 % (1.0-10.0); NEUTROPHILS % (AUTO) 81.6 % (45.0-75.0); PLATELET COUNT 149 K/UL (150-450); RED BLOOD COUNT 4.03 M/UL (4.20-5.40); RED CELL DISTRIBUTION WIDTH 15.3 % (11.6-14.8); WHITE BLOOD COUNT 12.8 K/UL (4.8-10.8)
[2017-09-15 07:56] LABS: ALANINE AMINOTRANSFERASE 15 U/L (12-78); ALBUMIN/GLOBULIN RATIO 0.8 (1.0-2.7); ALKALINE PHOSPHATASE 59 U/L (46-116); ANION GAP 13 mmol/L (5-15); ASPARTATE AMINO TRANSFERASE 24 U/L (15-37); BILIRUBIN,TOTAL 2.4 MG/DL (0.2-1.0); BLOOD UREA NITROGEN 15 mg/dL (7-18); CALCIUM 8.5 MG/DL (8.5-10.1); CARBON DIOXIDE 22 MMOL/L (21-32); CHLORIDE 101 MMOL/L (98-107); CREATININE 0.9 MG/DL (0.55-1.30); POTASSIUM 4.1 MMOL/L (3.5-5.1); SODIUM 136 MMOL/L (136-145)
[2017-09-15 08:00] VITALS: BP 146/86
[2017-09-15 08:03] LABS: BILIRUBIN,DIRECT 0.6 MG/DL (0.0-0.3)
[2017-09-15] MEDS: Aspirin EC 81mg tab ORAL SCH (08:50)
[2017-09-15] MEDS: Metoprolol 25mg tab ORAL SCH ×2 (08:52→20:35)
--- NOTE | 2017-09-15 10:47 | History & Physical ---
History and Physical History & Physicial DATE OF ADMISSION: 09/14/2017 HISTORY OF PRESENT ILLNESS: The patient is an 86-year-old female, who lives at home alone. She is a poor historian. Apparently, she fell and is unable to walk and was brought into the emergency department by paramedics. She was evaluated and found weakness and rapid A fib. She c/o R knee pain and has a recurrent joint effusion. 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 MEDICATIONS: Reviewed and reconciled. SOCIAL HISTORY: She does not drink or smoke. She is and has multiple family members. She was born in [facility]. REVIEW OF SYSTEMS: limited PHYSICAL EXAMINATION: GENERAL: The patient is alert and responsive. She is thin and frail. VITAL SIGNS: Show a heart rate of 102. Other vital signs are normal. HEENT: The head is normocephalic. There is no sign of trauma. NECK: Has no jugular venous distention. CHEST: Clear. CARDIAC: Rhythm is irregular. ABDOMEN: Soft and nontender. The liver and spleen are not enlarged. EXTREMITIES: No clubbing, cyanosis, or edema. The right knee is swollen with a joint effusion. IMPRESSION: 1. Weakness, gait disorder 2. Atrial fibrillation, RVR. 3. Hypertension. 4. Diabetes. 5. Right knee effusion. 6. Hyperlipidemia. 7. Gout. 8. Carotid artery disease. 9. Hypokalemia. PLAN: The patient will be admitted and evaluated. Cardiology and Orthopedics have been called. She will likely need placement. Mark Cornell MD Sep 15, 2017 10:46
[2017-09-15] MEDS: Magnesium Chloride w/Calcium Tab ORAL SCH ×2 (11:48→17:01)
[2017-09-15 12:00] VITALS: BP 109/71
--- NOTE | 2017-09-15 14:40 | Diagnostic Imaging Report ---
Indication: Chronic neck pain Technique: CT cervical spine was performed utilizing automated exposure control without intravenous contrast material. Axial, sagittal and coronal images were generated. CT dose: Total DLP 250.37 mGycm; CTDI vol 12.71 mGy Comparison: None Findings: There is no evidence of acute fracture or traumatic malalignment. There is multilevel degenerative change of the cervical spine manifested by disc space narrowing, multilevel disc osteophyte complexes as well as endplate sclerosis and subchondral cystic change. There is also multilevel uncovertebral and facet joint hypertrophy. Degenerative changes result in varying degrees of central canal stenosis with possibly mild to moderate bony central canal stenosis at C5-C6 where there is some right-sided bony foraminal narrowing. Please note that the cord, disks and nerves are better evaluated on MRI, which can be obtained as clinically indicated for further evaluation. Imaged portions of the posterior fossa grossly unremarkable. The left lobe of the thyroid is not visualized and may be surgically absent. The right lobe of the thyroid is unremarkable. Imaged lung apices grossly unremarkable. Visualized mastoid air cells are clear. There are some periapical lucencies/dental disease involving some partially visualized mandibular teeth. Correlate with dental exam. IMPRESSION: Multilevel degenerative change of the cervical spine most pronounced at C5-C6. No evidence of acute fracture or traumatic malalignment. The CT scanner at [facility] is accredited by the [employer] and the scans are performed using protocols designed to limit radiation exposure to as low as reasonably achievable to attain images of sufficient resolution adequate for diagnostic evaluation.
[2017-09-15 16:00] VITALS: BP 117/81
[2017-09-15] MEDS: Xarelto 15mg tab ORAL SCH (17:01)
[2017-09-15 20:00] VITALS: BP 130/88
[2017-09-16] VITALS: BP 126/85
[2017-09-16 04:00] VITALS: BP 155/91
--- NOTE | 2017-09-16 04:45 | Progress Note ---
DATE: 09/15/2017 CARDIOLOGY PROGRESS NOTE SUBJECTIVE: The patient is comfortable. Some knee pain noted. No shortness of breath. Monitored rhythm, atrial fibrillation. Ventricular rates have improved. OBJECTIVE: VITAL SIGNS: Blood pressure 130/88, heart rate 64 to 100, and respiratory rate 19 to 23 . No fevers. LUNGS: Clear. CARDIAC: Irregularly irregular. ABDOMEN: Soft. EXTREMITIES: No edema. Right knee effusion is noted. LABORATORY DATA: Potassium 4.1, magnesium 1, albumin 2.4, pro-natriuretic peptide 6900. IMPRESSION: 1. Knee contusion with effusion. 2. Atrial fibrillation with improving ventricular rates. 3. Hypertensive heart disease. 4. Type 2 diabetes mellitus. 5. Hypomagnesemia. 6. Acute on chronic diastolic congestive heart failure. PLAN: 1. IV magnesium. 2. Pain control. 3. Cautious anticoagulation for cardioembolic prophylaxis. 4. Titrate anti-failure and antihypertensive regimen. Cristofer Brandt M.D. DR: KARLENE JOB#: [id number] CC:
[2017-09-16 08:00] VITALS: BP 121/82
[2017-09-16] MEDS: Lisinopril 20mg tab ORAL SCH (09:52)
[2017-09-16] MEDS: Aspirin EC 81mg tab ORAL SCH (09:52)
[2017-09-16] MEDS: Metoprolol 25mg tab ORAL SCH ×2 (09:52→21:13)
[2017-09-16] MEDS: Magnesium Chloride w/Calcium Tab ORAL SCH ×2 (09:54→16:32)
[2017-09-16] MEDS ORDERED: Haloperidol 5mg/ml Inj IM SCH (10:15)
[2017-09-16] MEDS ORDERED: LORazepam Inj 2mg/ml 1ml IM SCH (10:30)
[2017-09-16] MEDS ORDERED: DiphenhydrAMINE 50mg/ml Inj IM SCH (10:30)
[2017-09-16 12:00] VITALS: BP 132/79
--- NOTE | 2017-09-16 13:22 | General Progress Note ---
Assessment/Plan Assessment/Plan 1. Weakness, gait disorder 2. Atrial fibrillation, RVR. 3. Hypertension. 4. Diabetes. 5. Right knee effusion. 6. Hyperlipidemia. 7. Gout. 8. Carotid artery disease. 9. Hypokalemia. yelling; requested psych consult contacted ortho to tap knee PT to eval will need snf soon Subjective ROS Limited/Unobtainable: Yes Allergies: Coded Allergies: No Known Allergies (Verified , 03/21/11) Objective Last 24 Hour Vital Signs Date Time Temp Pulse Resp B/P (MAP) Pulse Ox O2 Delivery O2 Flow Rate FiO2 09/16/17 09:52 121/82 09/16/17 09:52 83 121/82 09/16/17 09:00 Room Air 09/16/17 08:00 97.3 83 19 121/82 (95) 94 97.3 09/16/17 08:00 90 09/16/17 04:00 97.3 102 20 155/91 (112) 97 97.3 09/16/17 03:52 87 09/16/17 00:17 77 09/16/17 00:00 97.5 64 23 126/85 (99) 95 97.5 09/15/17 21:00 Room Air 09/15/17 20:35 91 130/88 09/15/17 20:00 97.8 100 19 130/88 (102) 99 97.8 09/15/17 19:24 95 09/15/17 16:00 82 09/15/17 16:00 97.7 95 16 117/81 (93) 99 97.7 Intake and Output 09/15/17 09/16/17 19:00 07:00 Output Total 0 ml Balance 0 ml Output Urine Total 0 ml Laboratory Tests 09/16/17 12:50: Body Fluid Source [Pending], Body Fluid Volume [Pending], Body Fluid Appearance [Pending], Body Fluid RBC [Pending], Body Fluid Total Nucleated Cells [Pending] , Synovial Fluid Crystals [Pending] Height (Feet): 5 Height (Inches): 0.00 Weight (Pounds): 104 General Appearance: no apparent distress, confused, agitated Cardiovascular: normal rate, irregularly irregular Respiratory/Chest: lungs clear Extremities: other - R knee effusion Mark Cornell MD Sep 16, 2017 13:22
--- NOTE | 2017-09-16 13:56 | Diagnostic Imaging Report ---
Indication: Pain Technique: XRAY Knee 3v R Comparison: 04/02/2017 Findings: Osteopenia. No acute fracture. There is degenerative change of the knee with joint space narrowing most pronounced in the medial femorotibial compartment where there is some subchondral sclerosis. Some chondrocalcinosis is noted in the lateral femorotibial compartment. There are tricompartmental osteophytes. There is a persistent suprapatellar joint effusion although the sizes effusion is decreased compared to the prior exam. There are atherosclerotic vascular calcifications. No radiopaque foreign body identified. IMPRESSION: Degenerative change of the knee as above. No evidence of acute fracture. Suprapatellar joint effusion, decreased in size compared to 04/02/2017.
[2017-09-16] MEDS ORDERED: Haloperidol 5mg/ml Inj IM PRN (14:00)
[2017-09-16] MEDS ORDERED: LORazepam Inj 2mg/ml 1ml IM PRN (14:00)
--- NOTE | 2017-09-16 14:01 | Consultation ---
History of Present Illness General Date patient seen: Sep 16, 2017 Chief Complaint: Generalized Weakness Present Illness HPI 86-year-old female, who lives at home alone. She is a poor historian. Allergies: Coded Allergies: No Known Allergies (Verified , 03/21/11) Medication History Scheduled Amlodipine Besylate/Benazepril 5-20 Mg* (Amlodipine-Benazepril 5-20 Mg*), 1 CAP ORAL DAILY, (Reported) Aspirin* (Aspir 81*), 81 MG ORAL DAILY, (Reported) Cholecalciferol (Vitamin D3) (Vitamin D3), 1,000 UNIT ORAL DAILY, (Reported) Hydrochlorothiazide* (Hydrochlorothiazide*), 12.5 MG ORAL DAILY, (Reported) Lovastatin (Lovastatin), 20 MG ORAL BEDTIME, (Reported) Metformin Hcl* (Metformin Hcl*), 850 MG ORAL TWICE A DAY, (Reported) Metformin Hcl* (Metformin Hcl*), 500 MG ORAL TWICE A DAY, (Reported) Metoprolol Tartrate* (Metoprolol Tartrate*), 25 MG ORAL EVERY 12 HOURS, ( Reported) Patient History Limited by: medical condition History Provided By: Medical Record, PMD Healthcare decision maker Resuscitation status Full Code Advanced Directive on File Past Medical/Surgical History Past Medical/Surgical History: (1) Syncope (2) Episode of generalized weakness (3) Atrial fibrillation with RVR Review of Systems Psychiatric: Reports: prior hx, anxiety, depressed feelings Physical Exam General Appearance: no apparent distress, alert, confused, agitated Last 24 Hour Vital Signs Date Time Temp Pulse Resp B/P (MAP) Pulse Ox O2 Delivery O2 Flow Rate FiO2 09/16/17 09:52 121/82 09/16/17 09:52 83 121/82 09/16/17 09:00 Room Air 09/16/17 08:00 97.3 83 19 121/82 (95) 94 97.3 09/16/17 08:00 90 09/16/17 04:00 97.3 102 20 155/91 (112) 97 97.3 09/16/17 03:52 87 09/16/17 00:17 77 09/16/17 00:00 97.5 64 23 126/85 (99) 95 97.5 09/15/17 21:00 Room Air 09/15/17 20:35 91 130/88 09/15/17 20:00 97.8 100 19 130/88 (102) 99 97.8 09/15/17 19:24 95 09/15/17 16:00 82 09/15/17 16:00 97.7 95 16 117/81 (93) 99 97.7 Intake and Output 09/15/17 09/16/17 19:00 07:00 Output Total 0 ml Balance 0 ml Output Urine Total 0 ml Laboratory Tests Test 09/16/17 12:50 Body Fluid Source Pending Body Fluid Volume Pending Body Fluid Appearance Pending Body Fluid RBC Pending Body Fluid Total Nucleated Cells Pending Body Fluid Polynuclear WBCs (%) Pending Body Fluid Mononuclear WBCs (%) Pending Body Fluid Mesothelial Cells (%) Pending Synovial Fluid Crystals Pending Height (Feet): 5 Height (Inches): 0.00 Weight (Pounds): 104 Medications Current Medications Medications (Trade) Dose Ordered Sig/Francisco Route PRN Reason Start Time Stop Time Status Last Admin Dose Admin Acetaminophen (Tylenol) 650 mg Q4H PRN ORAL Mild Pain/Temp > 100.5 09/14/17 23:00 10/14/17 22:59 09/15/17 04:25 Aspirin (Ecotrin) 81 mg DAILY ORAL 09/15/17 09:00 10/15/17 08:59 09/16/17 09:52 Dextrose (Dextrose 50%) 25 ml STAT PRN IV Hypoglycemia 09/14/17 13:30 10/14/17 13:29 Dextrose (Dextrose 50%) 50 ml STAT PRN IV Hypoglycemia 09/14/17 13:30 10/14/17 13:29 Lisinopril (Prinivil) 20 mg DAILY ORAL 09/16/17 09:00 10/16/17 08:59 09/16/17 09:52 Magnesium Chloride (Slow-Mag) 1 tab BID ORAL 09/16/17 10:00 10/16/17 09:59 09/16/17 09:54 Metoprolol Tartrate (Lopressor) 50 mg EVERY 12 HOURS ORAL 09/15/17 09:00 10/15/17 08:59 09/16/17 09:52 Rivaroxaban (Xarelto) 15 mg QPM ORAL 09/15/17 16:30 10/14/17 16:29 09/15/17 17:01 Assessment/Plan Status: unchanged Assessment/Plan Dementia with with behavioral dist Encephalopathy -Risperdal 1mg qhs -Haldol Im prn -Ativan IM Flory Akins MD Sep 16, 2017 14:01
[2017-09-16 16:00] VITALS: BP 126/78
--- NOTE | 2017-09-16 16:15 | Cardiology Report ---
APPROVED REPORT EKG Measurement Heart [id number] Atrial fibrillation with rapid ventricular response Abnormal ECG
[2017-09-16] MEDS: Xarelto 15mg tab ORAL SCH (16:30)
[2017-09-16 20:00] VITALS: BP 109/66
[2017-09-17] VITALS: BP_SYST 126; BP_SYST 148; BP_DIAS 76; BP_DIAS 82
[2017-09-17 04:00] VITALS: BP 148/82
--- NOTE | 2017-09-17 04:00 | Progress Note ---
DATE: 09/16/2017 CARDIOLOGY PROGRESS NOTE SUBJECTIVE: The patient is agitated and confused, at times calling out. Psych evaluation noted. During these episodes, the patient's atrial fibrillation is increasing, rates above 120. OBJECTIVE: VITAL SIGNS: Blood pressure 121/82, pulse 83, respirations 19, and afebrile. LUNGS: Diminished breath sounds. No wheezing. HEART: Irregularly irregular rhythm. Normal S1, S2. ABDOMEN: Soft. EXTREMITIES: No edema. DIAGNOSTIC DATA: X-rays of the knees are noted. IMPRESSION: 1. Atrial fibrillation with rapid ventricular response. 2. Acute on chronic diastolic congestive heart failure. 3. Multiple contusions. 4. Hypomagnesemia, status post replacement therapy. PLAN: 1. Cautiously anticoagulate for cardioembolic prophylaxis with fall precautions. 2. We will add additional therapy for rate control. 3. Mobilize with physical therapy assistance. Cristofer rBandt M.D. DR: SEVERIANO JOB#: [id number] CC:
[2017-09-17 08:00] VITALS: BP 152/83
[2017-09-17] MEDS: Lisinopril 20mg tab ORAL SCH (08:14)
[2017-09-17] MEDS: Aspirin EC 81mg tab ORAL SCH (08:14)
[2017-09-17] MEDS: Magnesium Chloride w/Calcium Tab ORAL SCH ×2 (08:14→17:15)
[2017-09-17] MEDS: Metoprolol 25mg tab ORAL SCH ×2 (08:14→20:40)
[2017-09-17 12:00] VITALS: BP 145/82
--- NOTE | 2017-09-17 12:02 | General Progress Note ---
Assessment/Plan Status: stable Assessment/Plan Dementia with with behavioral dist Encephalopathy -Risperdal 1mg qhs -Haldol Im prn -Ativan IM Subjective Date patient seen: Sep 17, 2017 Neurologic/Psychiatric: Reports: anxiety Allergies: Coded Allergies: No Known Allergies (Verified , 03/21/11) Subjective the pt is calm and manageable Objective Last 24 Hour Vital Signs Date Time Temp Pulse Resp B/P (MAP) Pulse Ox O2 Delivery O2 Flow Rate FiO2 09/17/17 09:00 Room Air 09/17/17 08:14 87 148/82 09/17/17 08:14 148/82 09/17/17 08:00 98.1 105 18 152/83 (106) 97 98.1 09/17/17 04:00 97.3 87 20 148/82 (104) 96 97.3 09/17/17 03:59 92 09/17/17 00:00 97.0 70 20 126/76 (93) 97 97.0 09/16/17 23:58 74 09/16/17 21:13 75 119/72 09/16/17 21:00 Room Air 09/16/17 20:00 97.3 88 21 109/66 (80) 98 97.3 09/16/17 19:51 75 09/16/17 16:00 97.3 92 23 126/78 (94) 98 97.3 09/16/17 16:00 102 Intake and Output 09/16/17 09/17/17 19:00 07:00 Intake Total 120 ml Balance 120 ml Intake Oral 120 ml # Voids 2 1 Laboratory Tests 09/16/17 12:50: Body Fluid Source Right knee, Body Fluid Volume 45, Body Fluid Appearance Yellow /turbid, Body Fluid RBC 5655, Body Fluid Total Nucleated Cells 01061, Body Fluid Polynuclear WBCs (%) 82, Body Fluid Mononuclear WBCs (%) 18, Body Fluid Mesothelial Cells (%) 0, Synovial Fluid Crystals See comment 09/16/17 13:47: Erythrocyte Sedimentation Rate 71H, Rheumatoid Factor Screen 13.2, Anti-Nuclear Antibody Screen [Pending] Height (Feet): 5 Height (Inches): 0.00 Weight (Pounds): 104 General Appearance: no apparent distress, alert, confused Flory Akins MD Sep 17, 2017 12:02
[2017-09-17 15:28] LABS: BASOPHILS % (AUTO) 0.5 % (0.0-2.0); EOSINOPHILS % (AUTO) 2.2 % (0.0-3.0); HEMOGLOBIN 12.1 G/DL (12.0-16.0); MEAN CORPUSCULAR VOLUME 92 FL (80-99); MONOCYTES % (AUTO) 8.3 % (1.0-10.0); NEUTROPHILS % (AUTO) 77.1 % (45.0-75.0); PLATELET COUNT 181 K/UL (150-450); WHITE BLOOD COUNT 9.3 K/UL (4.8-10.8)
[2017-09-17 16:00] VITALS: BP 145/95
--- NOTE | 2017-09-17 16:28 | General Progress Note ---
Assessment/Plan Assessment/Plan 1. Weakness, gait disorder 2. Atrial fibrillation, RVR. 3. Hypertension. 4. Diabetes. 5. Right knee effusion. 6. Hyperlipidemia. 7. Gout. 8. Carotid artery disease. 9. Hypokalemia. 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 unable to ambulate snf today Subjective ROS Limited/Unobtainable: Yes Allergies: Coded Allergies: No Known Allergies (Verified , 03/21/11) Objective Last 24 Hour Vital Signs Date Time Temp Pulse Resp B/P (MAP) Pulse Ox O2 Delivery O2 Flow Rate FiO2 09/17/17 12:00 97.8 80 21 145/82 (103) 96 97.8 09/17/17 12:00 74 09/17/17 09:00 Room Air 09/17/17 08:14 87 148/82 09/17/17 08:14 148/82 09/17/17 08:00 96 09/17/17 08:00 98.1 105 18 152/83 (106) 97 98.1 09/17/17 04:00 97.3 87 20 148/82 (104) 96 97.3 09/17/17 03:59 92 09/17/17 00:00 97.0 70 20 126/76 (93) 97 97.0 09/16/17 23:58 74 09/16/17 21:13 75 119/72 09/16/17 21:00 Room Air 09/16/17 20:00 97.3 88 21 109/66 (80) 98 97.3 09/16/17 19:51 75 Intake and Output 09/16/17 09/17/17 19:00 07:00 Intake Total 120 ml Balance 120 ml Intake Oral 120 ml # Voids 2 1 Laboratory Tests 09/17/17 14:50: White Blood Count 9.3, Red Blood Count 3.90L, Hemoglobin 12.1, Hematocrit 36.0L , Mean Corpuscular Volume 92, Mean Corpuscular Hemoglobin 31.2H, Mean Corpuscular Hemoglobin Concent 33.8, Red Cell Distribution Width 15.0H, Platelet Count 181, Mean Platelet Volume 9.2, Neutrophils (%) (Auto) 77.1H, Lymphocytes (%) (Auto) 12.0L, Monocytes (%) (Auto) 8.3, Eosinophils (%) (Auto) 2.2, Basophils (%) (Auto) 0.5 Height (Feet): 5 Height (Inches): 0.00 Weight (Pounds): 104 General Appearance: no apparent distress Neck: normal alignment Cardiovascular: normal rate, irregularly irregular Mark Cornell MD Sep 17, 2017 16:28
[2017-09-17] MEDS: Xarelto 15mg tab ORAL SCH (17:16)
[2017-09-17 20:00] VITALS: BP 117/68
--- NOTE | 2017-09-18 01:00 | Progress Note ---
DATE: 09/17/2017 CARDIOLOGY PROGRESS NOTE SUBJECTIVE: The patient is sedated today. She received psychiatric treatment for agitation last night. The patient's knee fluid is consistent with crystal arthropathy. The patient still has difficulty ambulating. The patient's monitor reveals atrial fibrillation. Overall, rate is well controlled in the 70 to 100 range. With episodes of agitation, heart rate goes up. OBJECTIVE: VITAL SIGNS: Blood pressure 148/82, pulse 87, respiratory rate 18. LUNGS: Clear breath sounds. No wheezing. HEART: Irregularly irregular rhythm. Normal S1, S2. ABDOMEN: Soft. EXTREMITIES: No edema. IMPRESSION: 1. Atrial fibrillation now with better control of rates. 2. Hypertensive heart disease. 3. Crystal arthropathy. 4. History of gout. 5. History of carotid artery disease. 6. Hypokalemia, corrected. 7. Hypomagnesemia, corrected. PLAN: 1. Maintain current beta-ezra dosing. 2. Pain control. 3. Mobilization. 4. Stable for intermediate facility. 5. May require further up titration of medications at intermediate facility depending on clinical course. Cristofer Brandt M.D. DR: Benito JOB#: [id number] CC:
--- NOTE | 2017-09-18 12:22 | Discharge Summary ---
Discharge Summary Discharge Summary _ DATE OF ADMISSION: 09/14/2017 DATE OF DISCHARGE: 09/17/2017 CONSULTANTS: Dr. Cristofer Akins BRIEF HOSPITAL COURSE: Patient is an 86-year-old female, who lives at home alone. She is a poor historian. Apparently, she fell and is unable to walk. She was taken to the emergency room by paramedics. 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 On evaluation at ED, patient was tachycardic. EKG showed rapid A. fib. She was given labetalol IV. Blood work showed slight leukocytosis, WBC was 12. Hemoglobin and hematocrit were stable, electrolytes stable. Troponin negative. She had a chest x-ray done that showed cardiomegaly with no acute disease. CT of head was negative for acute intracranial bleed, mass effect; there were chronic age-related changes. She was then admitted for rapid A. fib and evaluation of weakness and gait disorder. She underwent cardiology evaluation. She was resumed on anticoagulation for cardioembolic prophylaxis. She had low potassium level and was given potassium replacement. She was also given magnesium replacement. She was given metoprolol and lisinopril. Patient has dementia and was agitated and was yelling. She was seen by psychiatrist. She was given Risperdal. She was placed on prn Ativan and Haldol. She had swollen right knee with joint effusion. Orthopedic was called for a knee tap. 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 She was given colchicine twice a day. Right knee x-ray showed degenerative changes with no evidence of fracture and decreased suprapatellar joint effusion. She was given physical and occupational therapy. Vitals were stable. She was eventually discharged to a long term. FINAL DIAGNOSES: Weakness and gait disorder A. fib with RVR Hypertension Diabetes mellitus Right knee effusion status post knee aspiration Crystal arthropathy Hyperlipidemia Gout Carotid artery disease Hypokalemia Hypomagnesemia Dementia with behavioral disturbance Encephalopathy DISPOSITION: Patient was discharged to rehabilitation [facility] for [facility]. I have been assigned to dictate discharge summary on this account, and I was not involved in the patient's management. Graciela Hernandez NP Sep 18, 2017 12:22
--- NOTE | 2017-09-18 15:36 | Cardiology Report ---
APPROVED REPORT EXAM: Two-dimensional and M-mode echocardiogram with Doppler and color Doppler. INDICATION Atrial Fibrillation M-Mode DIMENSIONS IVSd1.4 (0.7-1.1cm)Left Atrium (MM)5.3 (1.6-4.0cm) LVDd5.1 (3.5-5.6cm)Aortic Root3.3 (2.0-3.7cm) PWd0.7 (0.7-1.1cm)Aortic Cusp Exc.1.5 (1.5-2.0cm) LVDs3.6 (2.5-4.0cm) PWs1.1 cm Normal left ventricular chamber size, systolic function and wall motion. Left ventricular ejection fraction estimated to be 55 %. Mild left ventricular hypertrophy. Small posterior pericardial effusion. Severe left atrial enlargement. Moderate right atrial enlargement. Right ventricular chamber size is within normal limits. Focal aortic valve sclerosis with adequate cusp excursion. Thickened mitral valve leaflets with normal excursion. Mitral annulus and aortic root calcification. Pulmonic valve not well visualized. Normal tricuspid valve structure. IVC dilated at 1.9 cm without physiologic collapse suggestive of increased RA pressure. A color flow and spectral Doppler study was performed and revealed: Moderate aortic regurgitation. Severe posteriorly eccentric mitral regurgitation. Mitral inflow indicates restrictive pattern, implying severely elevated left atrial pressure (Grade III). Moderate to severe tricuspid regurgitation. Tricuspid systolic velocities suggests peak right ventricular systolic pressure of 70 mmHg, consistent with severe pulmonary hypertension.
== END 2017-09-17 21:37 | DRG 308 ==
LOC: EDBD 10:06 → EMR 10:45 → 2E 11:00 → EDBEDREQ 11:21
DX: I48.91 Unspecified atrial fibrillation (principal); G93.41 Metabolic encephalopathy; I50.33 Acute on chronic diastolic (congestive) heart failure; F03.91 Unspecified dementia, unspecified severity, with behavioral disturbance; R26.9 Unspecified abnormalities of gait and mobility; E11.9 Type 2 diabetes mellitus without complications; M25.461 Effusion, right knee; E78.5 Hyperlipidemia, unspecified; M10.9 Gout, unspecified; E87.6 Hypokalemia; Z60.2 Problems related to living alone; I48.2 Chronic atrial fibrillation; Z79.01 Long term (current) use of anticoagulants; M11.861 Other specified crystal arthropathies, right knee; I77.89 Other specified disorders of arteries and arterioles; E83.42 Hypomagnesemia; R53.1 Weakness; K76.0 Fatty (change of) liver, not elsewhere classified; I11.0 Hypertensive heart disease with heart failure
CPT/HCPCS: 36415; 70450; 71045; 72125; 80053; 81003; 82248; 82550; 82553; 83690; 83735; 83880; 84443; 84484; 85007; 85025; 85651; 86039; 86431; 87070; 87205; 89051; 89060; 93005; 93306; 99285; J8499